=== PATIENT | male | born 1970 | race Two or more races ===

== ENCOUNTER 2018-05-05 10:20 | Emergency (ER) | payer MEDICAID ==
[~2018-05-05] VITALS: Ht 170.2 cm; Wt 131.0 kg
[~2018-05-05 10:20] MED LIST: CARV3.122 PO; FURO40TA4 PO; LISI10TA4 PO; POTA20TA19 PO; SPIR25TA5 PO
[2018-05-05 10:55] LABS: BASOPHILS # (AUTO) 0.1 X10'3 (0-0.2); BASOPHILS % (AUTO) 0.8 % (0-1); EOSINOPHILS # (AUTO) 0.3 X10'3 (0-0.9); EOSINOPHILS % (AUTO) 3.1 % (0-6); HEMATOCRIT 40.8 % (42.0-52.0); HEMOGLOBIN 13.1 g/dl (14.0-17.9); LYMPHOCYTES # (AUTO) 1.5 X10'3 (1.1-4.8); MEAN CORPUSCULAR HGB CONC 32.1 % (33.0-36.5); MEAN CORPUSCULAR VOLUME 84.1 FL (78-98); MEAN PLATELET VOLUME 7.7 FL (7.4-10.4); MONOCYTES # (AUTO) 0.8 X10'3 (0-0.9); MONOCYTES % (AUTO) 8.3 % (2-12); NEUTROPHILS # (AUTO) 6.9 X10'3 (1.8-7.7); NEUTROPHILS % (AUTO) 71.8 % (42-75); PLATELET COUNT 313 X10'3 (140-440); RED BLOOD COUNT 4.85 X10'6 (4.70-6.10); RED CELL DISTRIBUTION WIDTH 16.5 % (11.5-14.5); WHITE BLOOD COUNT 9.6 X10'3 (4.5-11.0)
[2018-05-05 11:07] LABS: INR 1.2 INR; PARTIAL THROMBOPLASTIN TIME 29 SECONDS (22-32); PROTHROMBIN TIME 11.8 SECONDS (9.0-12.0)
[2018-05-05 11:08] LABS: ALANINE AMINOTRANSFERASE 33 U/L (12-78); ALBUMIN 3.2 G/DL (3.4-5.0); ALBUMIN/GLOBULIN RATIO 0.8 (1.1-1.5); ALKALINE PHOSPHATASE 84 IU/L (46-116); ANION GAP 11 (8-16); ASPARTATE AMINO TRANSFERASE 21 U/L (10-37); BILIRUBIN,TOTAL 0.6 MG/DL (0.1-1.0); BLOOD UREA NITROGEN 24 MG/DL (7-18); BUN/CREATININE RATIO 15.8 (5.4-32.0); CALCIUM 7.8 MG/DL (8.5-10.1); CHLORIDE 108 MMOL/L (99-107); CREATININE 1.52 MG/DL (0.60-1.10); GLUCOSE 109 MG/DL (70-104); POTASSIUM 4.4 MMOL/L (3.5-5.1); SODIUM 144 MMOL/L (135-145); TOTAL CARBON DIOXIDE 25.4 MMOL/L (24-32); eGFR 49 ML/MIN
[2018-05-05] MEDS ORDERED: FURO-149 PO (11:33)
[2018-05-05] MEDS ORDERED: POTA20TA10 PO (11:33)
[2018-05-05 11:47] VITALS: BP 132/83
== END 2018-05-05 11:48 | disposition home or self-care (01) ==
LOC: ER 10:20
DX: I50.9 Heart failure, unspecified (principal); G89.29 Other chronic pain; Z87.11 Personal history of peptic ulcer disease
CPT/HCPCS: 36415; 71045; 80053; 83880; 84484; 85025; 85610; 85730; 93005; 99285

== ENCOUNTER 2018-05-12 11:50 | Emergency (ER) | payer MEDICAID ==
[~2018-05-12] VITALS: Ht 170.2 cm; Wt 143.1 kg
[~2018-05-12 11:50] MED LIST changes: +FURO-149 PO; +POTA20TA10 PO
[2018-05-12 12:49] LABS: BASOPHILS # (AUTO) 0.1 X10'3 (0-0.2); BASOPHILS % (AUTO) 0.4 % (0-1); EOSINOPHILS # (AUTO) 0.2 X10'3 (0-0.9); EOSINOPHILS % (AUTO) 1.7 % (0-6); HEMATOCRIT 41.2 % (42.0-52.0); HEMOGLOBIN 13.2 g/dl (14.0-17.9); LYMPHOCYTES # (AUTO) 1.9 X10'3 (1.1-4.8); LYMPHOCYTES % (AUTO) 14.1 % (21-51); MEAN CORPUSCULAR HEMOGLOBIN 26.9 PG (27.0-31.0); MEAN CORPUSCULAR HGB CONC 32.1 % (33.0-36.5); MEAN CORPUSCULAR VOLUME 83.9 FL (78-98); MEAN PLATELET VOLUME 7.9 FL (7.4-10.4); MONOCYTES # (AUTO) 1.1 X10'3 (0-0.9); MONOCYTES % (AUTO) 8.5 % (2-12); NEUTROPHILS % (AUTO) 75.3 % (42-75); PLATELET COUNT 379 X10'3 (140-440); RED BLOOD COUNT 4.91 X10'6 (4.70-6.10); RED CELL DISTRIBUTION WIDTH 16.5 % (11.5-14.5); WHITE BLOOD COUNT 13.3 X10'3 (4.5-11.0)
[2018-05-12 13:07] LABS: ALANINE AMINOTRANSFERASE 33 U/L (12-78); ALBUMIN 3.4 G/DL (3.4-5.0); ALBUMIN/GLOBULIN RATIO 0.9 (1.1-1.5); ALKALINE PHOSPHATASE 77 IU/L (46-116); ANION GAP 10 (8-16); ASPARTATE AMINO TRANSFERASE 22 U/L (10-37); BILIRUBIN,TOTAL 0.7 MG/DL (0.1-1.0); BLOOD UREA NITROGEN 22 MG/DL (7-18); BUN/CREATININE RATIO 16.3 (5.4-32.0); CALCIUM 8.7 MG/DL (8.5-10.1); CHLORIDE 105 MMOL/L (99-107); CREATININE 1.35 MG/DL (0.60-1.10); GLUCOSE 125 MG/DL (70-104); POTASSIUM 4.5 MMOL/L (3.5-5.1); SODIUM 143 MMOL/L (135-145); TOTAL PROTEIN 7.4 G/DL (6.4-8.2); eGFR 56 ML/MIN
[2018-05-12 13:17] LABS: INR 1.2 INR; PROTHROMBIN TIME 11.8 SECONDS (9.0-12.0)
[2018-05-12 13:18] LABS: PARTIAL THROMBOPLASTIN TIME 28 SECONDS (22-32)
[2018-05-12] MEDS ORDERED: FURO40TA4 PO (14:04)
[2018-05-12] MEDS ORDERED: POTA10TA19 PO (14:04)
[2018-05-12] MEDS ORDERED: potassium Cl 20 mEq SR tablet PO STA (14:21)
[2018-05-12] MEDS ORDERED: furosemide 20MG tablet PO ONE (14:25)
[2018-05-12 14:34] VITALS: BP 113/68
== END 2018-05-12 14:36 | disposition home or self-care (01) ==
LOC: ER 11:51
DX: R60.9 Edema, unspecified (principal); I51.7 Cardiomegaly; I50.9 Heart failure, unspecified; G89.29 Other chronic pain; F17.220 Nicotine dependence, chewing tobacco, uncomplicated; Z79.899 Other long term (current) drug therapy
CPT/HCPCS: 36415; 71045; 80053; 84484; 85025; 85610; 85730; 93005; 99285

== ENCOUNTER 2018-06-17 09:47 | Emergency (ER) | payer MEDICAID ==
[~2018-06-17] VITALS: Ht 170.2 cm; Wt 140.9 kg
[2018-06-17 10:17] LABS: BASOPHILS % (AUTO) 0.4 % (0-1); EOSINOPHILS # (AUTO) 0.2 X10'3 (0-0.9); HEMATOCRIT 40.6 % (42.0-52.0); HEMOGLOBIN 12.9 g/dl (14.0-17.9); LYMPHOCYTES # (AUTO) 1.4 X10'3 (1.1-4.8); LYMPHOCYTES % (AUTO) 13.5 % (21-51); MEAN CORPUSCULAR HEMOGLOBIN 25.6 PG (27.0-31.0); MEAN CORPUSCULAR HGB CONC 31.8 % (33.0-36.5); MEAN CORPUSCULAR VOLUME 80.5 FL (78-98); MEAN PLATELET VOLUME 7.6 FL (7.4-10.4); MONOCYTES # (AUTO) 0.8 X10'3 (0-0.9); MONOCYTES % (AUTO) 8.1 % (2-12); NEUTROPHILS # (AUTO) 7.6 X10'3 (1.8-7.7); PLATELET COUNT 300 X10'3 (140-440); RED BLOOD COUNT 5.05 X10'6 (4.70-6.10); RED CELL DISTRIBUTION WIDTH 16.4 % (11.5-14.5)
[2018-06-17] MEDS ORDERED: furosemide 10 MG/1 ML 10ml inj IV ONE (10:20)
[2018-06-17 10:32] LABS: INR 1.1 INR; PARTIAL THROMBOPLASTIN TIME 23 SECONDS (22-32); PROTHROMBIN TIME 11.5 SECONDS (9.0-12.0)
[2018-06-17 10:37] LABS: ALANINE AMINOTRANSFERASE 25 U/L (12-78); ALBUMIN 3.5 G/DL (3.4-5.0); ALBUMIN/GLOBULIN RATIO 0.9 (1.1-1.5); ALKALINE PHOSPHATASE 75 IU/L (46-116); ANION GAP 11 (8-16); ASPARTATE AMINO TRANSFERASE 18 U/L (10-37); BILIRUBIN,TOTAL 0.5 MG/DL (0.1-1.0); BLOOD UREA NITROGEN 24 MG/DL (7-18); CALCIUM 8.6 MG/DL (8.5-10.1); CHLORIDE 105 MMOL/L (99-107); CREATININE 1.09 MG/DL (0.60-1.10); GLUCOSE 119 MG/DL (70-104); POTASSIUM 3.9 MMOL/L (3.5-5.1); SODIUM 143 MMOL/L (135-145); TOTAL PROTEIN 7.5 G/DL (6.4-8.2); eGFR 72 ML/MIN
[2018-06-17 10:44] LABS: D-DIMER 0.52 MG/L FEU (0-0.50)
[2018-06-17 11:42] VITALS: BP 109/79
== END 2018-06-17 11:43 | disposition home or self-care (01) ==
LOC: ER 09:47
DX: I50.9 Heart failure, unspecified (principal); G89.29 Other chronic pain; F17.220 Nicotine dependence, chewing tobacco, uncomplicated; Z79.899 Other long term (current) drug therapy
CPT/HCPCS: 36415; 71045; 80053; 83880; 84484; 85025; 85379; 85610; 85730; 93005; 96374; 99284; J1940

== ENCOUNTER 2023-02-24 22:05 | Inpatient (IN) | payer MEDICAID ==
[~2023-02-24] VITALS: Ht 167.6 cm; Wt 150.1 kg
[~2023-02-24 22:05] MED LIST changes: +LISI10TA27 PO; -LISI10TA4 PO; +POTA-197 PO; +POTA-207 PO; -POTA20TA10 PO; -POTA20TA19 PO
[2023-02-24 23:24] LABS: BASOPHILS % (AUTO) 0.4 % (0-1); EOSINOPHILS % (AUTO) 0 % (0-6); HEMATOCRIT 40.1 % (42.0-52.0); HEMOGLOBIN 12.7 g/dl (14.0-17.9); LYMPHOCYTES # (AUTO) 0.8 X10'3 (1.1-4.8); LYMPHOCYTES % (AUTO) 6.8 % (21-51); MEAN CORPUSCULAR HEMOGLOBIN 27.4 PG (27.0-31.0); MEAN CORPUSCULAR HGB CONC 31.7 g/dL (33.0-36.5); MEAN CORPUSCULAR VOLUME 86.5 FL (78-98); MONOCYTES # (AUTO) 0.9 X10'3 (0-0.9); NEUTROPHILS # (AUTO) 9.7 X10'3 (1.8-7.7); NEUTROPHILS % (AUTO) 84.8 % (42-75); PLATELET COUNT 244 X10'3 (140-440); RED BLOOD COUNT 4.64 X10'6 (4.70-6.10); RED CELL DISTRIBUTION WIDTH 16.5 % (11.5-14.5); WHITE BLOOD COUNT 11.5 X10'3 (4.5-11.0)
[2023-02-24 23:40] LABS: ALANINE AMINOTRANSFERASE 32 U/L (12-78); ALBUMIN 2.8 G/DL (3.4-5.0); ALBUMIN/GLOBULIN RATIO 0.8 (1.1-1.5); ALKALINE PHOSPHATASE 65 IU/L (46-116); ANION GAP 6 (8-16); ASPARTATE AMINO TRANSFERASE 30 U/L (10-37); BILIRUBIN,TOTAL 0.8 MG/DL (0.1-1.0); BLOOD UREA NITROGEN 17 MG/DL (7-18); BUN/CREATININE RATIO 11.3 (10.0-20.0); CHLORIDE 101 MMOL/L (99-107); GLUCOSE 95 MG/DL (70-104); POTASSIUM 4.1 MMOL/L (3.5-5.1); SODIUM 139 MMOL/L (135-145); TOTAL PROTEIN 6.2 G/DL (6.4-8.2); eCRCL 51 ML/MIN; eGFR 49 ML/MIN
[2023-02-24 23:49] LABS: PRO BRAIN NATRIURETIC PEPTIDE 9098 PG/ML (0-125)
[2023-02-24] MEDS ORDERED: furosemide 10 MG/1 ML 10ml inj IV ONE (23:50)
[2023-02-25] VITALS (15 sets, daily range): BP systolic 53–160; BP diastolic 39–123; PULSE 107–136; RESP 16–38; O2SAT 85–99
[2023-02-25 01:02] LABS: INR 1.2 INR; PROTHROMBIN TIME 12.8 SECONDS (9.0-12.0)
[2023-02-25] MEDS ORDERED: ringers solution, lactated 500ml IV solution IV ONE (01:55)
[2023-02-25] MEDS ORDERED: MEROPENEM IV ONE (02:00)
[2023-02-25] MEDS ORDERED: NORMAL SALINE IV ONE (02:00)
--- NOTE | 2023-02-25 02:34 | NUR ---
pt has voided 2 times but has spilt his urinal.
--- NOTE | 2023-02-25 02:45 | NUR ---
PATIENT MOVED TO BED #5 FROM #10 DUE TO HYPOTENSION AND NEEDING A CENTRAL LINE PLACED, VÍCTOR LUGO TO LUC
[2023-02-25] MEDS ORDERED: DOBUTamine-DoBUTrex 500mg/D5W 250 ML IV SCH ×2 (03:10→03:20)
--- NOTE | 2023-02-25 03:11 | NUR ---
PER DR ARROYO WE ARE TO START DOBUTAMINE ON PIV UNTIL DR. ARROYO CAN GET CENTRAL LINE INSERTED, CONSENT SIGNED AT BEDSIDE AWAITING ED
[2023-02-25] MEDS ORDERED: vancomycin/NS 1 GM ADD-VANTAGE 250 ML IV ONE (03:30)
[2023-02-25] MEDS ORDERED: furosemide 10 MG/1 ML 10ml inj IV ONE (03:30)
[2023-02-25] MEDS ORDERED: NORepinephrine 8mg/ 250ml NS 250 ML IV ONE (04:09)
[2023-02-25] MEDS: NORepinephrine 8mg/ 250ml NS 250 ML IV SCH ×5 (04:15→10:28)
--- NOTE | 2023-02-25 04:30 | NUR ---
CXR VIEWED BY ED MD AND VERBALIZED IT CAN BE USED FOR MEDICATION
[2023-02-25] MEDS ORDERED: vancomycin/NS 1 GM ADD-VANTAGE 250 ML X 1 DOSE IV ONE (05:15)
[2023-02-25] MEDS ORDERED: LIDOcaine 2% 10ml TOPICAL JELLY (Urojet) TP ONE (06:40)
[2023-02-25] MEDS ORDERED: LidoCAINE 2% Topical Jelly 11mL syringe TOP ONE (06:45)
[2023-02-25] MEDS ORDERED: morphine 4 MG/ML inj SYRINge IV ONE (07:25)
[2023-02-25] MEDS ORDERED: sod chloride 0.9% 10ml flush syringe IV ONE (08:00)
[2023-02-25] MEDS ORDERED: rocuronium 10mg/ml inj IV ONE (08:00)
[2023-02-25] MEDS ORDERED: etomidate 2mg/ml inj. ONE (08:00)
[2023-02-25] MEDS ORDERED: normal saline 1000ML IV soln IVB ONE (08:45)
[2023-02-25] MEDS ORDERED: acetaminophen 325mg tablet PO ONE (08:50)
[2023-02-25] MEDS: ampicillin/sulbac 3gm/NS 100ml 100 ML IV SCH ×3 (09:40→20:15)
[2023-02-25 09:42] LABS: ABG BASE EXCESS -2.9 mmol/L (-2.0-2.0); ABG HCO3 19.6 mmol/L (22.0-26.0); ABG OXYGEN SATURATION 96.5 % (94-97); ABG PCO2 (T) 30.9 mmHg (35.0-48.0); ABG PH (T) 7.428 (7.340-7.440); ABG PO2 (T) 91.8 mmHg (75.0-100.0); ALLEN'S TEST POSITIVE; FCOHb 0.5 % (0.0-3.9); FHHb 3.5 % (0.0-5.0); FMetHb 0.1 % (0.0-1.5); FO2Hb 95.9 % (94-97); MODE ROOM AIR; PATIENT TEMPERATURE 39.2; TOTAL HEMOGLOBIN 13.4 G/dl (14.0-17.9)
[2023-02-25] MEDS ORDERED: acetaminophen 325mg tablet PO PRN ×2 (09:50)
[2023-02-25] MEDS ORDERED: ondansetron/PF 4mg/2ml inj IV PRN (09:50)
[2023-02-25] MEDS ORDERED: magnesium hydroxide 30ml (MOM) UD suspension PO PRN (09:50)
[2023-02-25] MEDS: morphine 2 MG/ML inj. syringe IV PRN ×2 (10:20→16:07)
[2023-02-25] MEDS: HYDROcodone/acetaminophen 10/325mg tab PO PRN (10:20)
--- NOTE | 2023-02-25 11:20 | NUR ---
Report received from Guadalupe AMADOR
[2023-02-25] MEDS ORDERED: vasopressin inj. 40 UNIT in dextrose 5%-water 50ml 38 ML IV SCH (14:25)
[2023-02-25 14:26] LABS: ABG BASE EXCESS -18.9 mmol/L (-2.0-2.0); ABG HCO3 9.2 mmol/L (22.0-26.0); ABG OXYGEN SATURATION 96.8 % (94-97); ABG PCO2 (T) 31.6 mmHg (35.0-48.0); ABG PH (T) 7.093 (7.340-7.440); ABG PO2 (T) 115.2 mmHg (75.0-100.0); FCOHb 0.5 % (0.0-3.9); FHHb 3.2 % (0.0-5.0); FLOW 4 L/min; FMetHb 0.3 % (0.0-1.5); MODE NASAL CANNULA; PATIENT TEMPERATURE 38.4; TOTAL HEMOGLOBIN 14.2 G/dl (14.0-17.9)
[2023-02-25] MEDS ORDERED: sodium bicarbonate (8.4%) 1 mEq/ml syringe IV ONE (14:30)
[2023-02-25] MEDS ORDERED: albumin (human) 25% 100ml IV 400 ML IV ONE (14:30)
[2023-02-25] MEDS ORDERED: SODIUM BICARB 150mEq/D5W 1L 1,000 ML IV SCH (14:30)
[2023-02-25] MEDS ORDERED: dextrose 50%-water 50ml dispensing syringe IV ONE (14:34)
[2023-02-25] MEDS ORDERED: LISI10TA27 PO (15:00)
[2023-02-25] MEDS ORDERED: ALLO300T8 PO (15:00)
[2023-02-25] MEDS ORDERED: ALBU18HF2 INH (15:00)
[2023-02-25 15:17] LABS: BASOPHILS % (AUTO) 0.2 % (0-1); EOSINOPHILS % (AUTO) 0.1 % (0-6); LYMPHOCYTES # (AUTO) 1.6 X10'3 (1.1-4.8); LYMPHOCYTES % (AUTO) 13.3 % (21-51); MEAN PLATELET VOLUME 8.3 FL (7.4-10.4); MONOCYTES # (AUTO) 0.3 X10'3 (0-0.9); MONOCYTES % (AUTO) 2.7 % (2-12); NEUTROPHILS % (AUTO) 83.7 % (42-75); PLATELET COUNT 228 X10'3 (140-440)
[2023-02-25] MEDS ORDERED: levoFLOXACIN-Levaquin 750MG/D5 150 ML IV STA (15:18)
[2023-02-25] MEDS: SODIUM BICARB IV SCH (15:27)
[2023-02-25] MEDS: [UNRECOGNIZED DRUG - OTHER] IV SCH (15:27)
[2023-02-25] MEDS: vasopressin inj. 40 UNIT in normal saline 50ml IV soln 38 ML IV SCH ×2 (15:28→23:34)
[2023-02-25 15:36] LABS: HEMATOCRIT 41.7 % (42.0-52.0); MEAN CORPUSCULAR HGB CONC 31.1 g/dL (33.0-36.5); RED BLOOD COUNT 4.64 X10'6 (4.70-6.10); RED CELL DISTRIBUTION WIDTH 16.9 % (11.5-14.5)
[2023-02-25 15:46] LABS: ALBUMIN 2.3 G/DL (3.4-5.0); ALBUMIN/GLOBULIN RATIO 0.8 (1.1-1.5); ALKALINE PHOSPHATASE 41 IU/L (46-116); ANION GAP 26 (8-16); ASPARTATE AMINO TRANSFERASE 39 U/L (10-37); BILIRUBIN,TOTAL 0.8 MG/DL (0.1-1.0); BLOOD UREA NITROGEN 28 MG/DL (7-18); BUN/CREATININE RATIO 9.1 (10.0-20.0); CALCIUM 6.9 MG/DL (8.5-10.1); CHLORIDE 100 MMOL/L (99-107); CREATININE 3.07 MG/DL (0.60-1.10); GLUCOSE 56 MG/DL (70-104); POTASSIUM 5.3 MMOL/L (3.5-5.1); SODIUM 136 MMOL/L (135-145); TOTAL PROTEIN 5.2 G/DL (6.4-8.2); eCRCL 25 ML/MIN; eGFR 21 ML/MIN
[2023-02-25 15:52] LABS: TOTAL CARBON DIOXIDE 10.3 MMOL/L (24-32)
[2023-02-25] MEDS: albumin (Human) 5% 250ml 250 ML IV SCH ×3 (16:01→22:26)
[2023-02-25] MEDS: heparin, porcine 5000 units/ml vial SQ SCH ×2 (16:07→23:45)
[2023-02-25 16:08] LABS: PRO BRAIN NATRIURETIC PEPTIDE > 30000 PG/ML (0-125)
[2023-02-25] MEDS ORDERED: VANCOmycin 2,000MG in NS 500ml IV soln IV ONE (16:15)
[2023-02-25 16:17] LABS: ALANINE AMINOTRANSFERASE 24 U/L (12-78)
[2023-02-25 16:42] LABS: URINE AMPHETAMINE SCREEN NEGATIVE (Neg); URINE BARBITUATE SCREEN NEGATIVE (Neg); URINE BENZODIAZEPINES SCREEN NEGATIVE (Neg); URINE CANNABINOID SCREEN NEGATIVE (Neg); URINE COCAINE SCREEN NEGATIVE (Neg); URINE METHADONE SCREEN NEGATIVE (Neg); URINE OPIATE SCREEN POSITIVE (Neg); URINE PHENCYCLIDINE SCREEN NEGATIVE (Neg)
[2023-02-25] MEDS: NORepinephrine inj. 32 MG in normal saline 250ml IV soln 218 ML IV SCH ×2 (16:42→21:04)
[2023-02-25] MEDS ORDERED: fludrocortisone acetate 0.1mg tablet PO SCH (16:50)
[2023-02-25] MEDS ORDERED: midazolam 1 mg/ML 2ml injection ONE (16:59)
[2023-02-25] MEDS: fludrocortisone acetate 0.1mg tablet PO SCH (17:22)
[2023-02-25] MEDS: hydrocortisone sod succ/PF 100mg/2ml inj. IV SCH ×2 (17:52→23:45)
[2023-02-25 17:58] LABS: ABG BASE EXCESS -14.9 mmol/L (-2.0-2.0); ABG HCO3 15.1 mmol/L (22.0-26.0); ABG OXYGEN SATURATION 93.5 % (94-97); ABG PCO2 (T) 56.8 mmHg (35.0-48.0); ABG PH (T) 7.055 (7.340-7.440); ABG PO2 (T) 95.2 mmHg (75.0-100.0); FCOHb 0.5 % (0.0-3.9); FHHb 6.4 % (0.0-5.0); FMetHb 0.3 % (0.0-1.5); FO2Hb 92.8 % (94-97); MODE PRVC; PATIENT TEMPERATURE 38.9; PEEP 5 cm H2O; RESPIRATORY RATE 16 b/min; TIDAL VOLUME 500 mL
[2023-02-25 19:09] LABS: BASOPHILS % (AUTO) 0.2 % (0-1); EOSINOPHILS % (AUTO) 0.1 % (0-6); HEMATOCRIT 41.5 % (42.0-52.0); LYMPHOCYTES % (AUTO) 7.5 % (21-51); MEAN CORPUSCULAR HEMOGLOBIN 27.7 PG (27.0-31.0); MEAN CORPUSCULAR HGB CONC 31.4 g/dL (33.0-36.5); MEAN CORPUSCULAR VOLUME 88.2 FL (78-98); MONOCYTES # (AUTO) 0.5 X10'3 (0-0.9); NEUTROPHILS # (AUTO) 11.9 X10'3 (1.8-7.7); NEUTROPHILS % (AUTO) 88.2 % (42-75); PLATELET COUNT 200 X10'3 (140-440); RED CELL DISTRIBUTION WIDTH 17.1 % (11.5-14.5); WHITE BLOOD COUNT 13.5 X10'3 (4.5-11.0)
[2023-02-25] MEDS: midazolam 100mg in NS 100ml 100 ML IV PRN (19:10)
[2023-02-25] MEDS: FENTANYL-0.9 % NACL/PF 100 ML IV PRN (19:11)
[2023-02-25 19:27] LABS: ALBUMIN 2.6 G/DL (3.4-5.0); ANION GAP 21 (8-16); BLOOD UREA NITROGEN 31 MG/DL (7-18); BUN/CREATININE RATIO 9.9 (10.0-20.0); CALCIUM 6.7 MG/DL (8.5-10.1); CHLORIDE 101 MMOL/L (99-107); CREATININE 3.14 MG/DL (0.60-1.10); GLUCOSE 83 MG/DL (70-104); MAGNESIUM 1.5 MG/DL (1.5-2.4); POTASSIUM 4.4 MMOL/L (3.5-5.1); SODIUM 141 MMOL/L (135-145); TOTAL CARBON DIOXIDE 19.2 MMOL/L (24-32); eCRCL 25 ML/MIN; eGFR 21 ML/MIN
--- NOTE | 2023-02-25 19:31 | NUR ---
Notified Dr. Jung of pt's condition. All drips, vent settings and vitals. He'd like to stay the course for now with no changes. He did not want to increase PEEP for fear of dropping the BP. He said it's OK to start Phenylephrine if pt needs but it should be last resort (already maxed on Levophed and Vasopressin).
[2023-02-25 20:41] LABS: ABG BASE EXCESS -12.8 mmol/L (-2.0-2.0); ABG HCO3 15.6 mmol/L (22.0-26.0); ABG OXYGEN SATURATION 99.4 % (94-97); ABG PCO2 (T) 48.1 mmHg (35.0-48.0); ABG PH (T) 7.137 (7.340-7.440); FCOHb 0.4 % (0.0-3.9); FHHb 0.6 % (0.0-5.0); MODE VENT - prvc; PATIENT TEMPERATURE 38.5; PEEP 5 cm H2O; RESPIRATORY RATE 22 b/min; TIDAL VOLUME 500 mL; TOTAL HEMOGLOBIN 13.9 G/dl (14.0-17.9)
[2023-02-25 20:44] LABS: OXYGEN SATURATION (MIXED VEN) 76.4 % (60-80); PO2 MIXED VENOUS (TEMP COR) 49.9 mmHg (35-46)
[2023-02-25] MEDS: PHENYLephrine 10mg/ml inj. 50 MG in normal saline 250ml IV soln 245 ML IV PRN (21:16)
--- NOTE | 2023-02-25 21:38 | NUR ---
notified Dr. Jung pt's BP is currently 70/40 MAP 50 on the cuff and 60/40 on the [place]. Attempted Niall drip as he previously wanted, this just decreased the pt's BP further and his CI (on flotrack) dropped from 2.1 to 1.5 once it was started. MD would like to give a bolus of LR 500ml gently and if needed decrease dobutamine after that since his BP is so low.
[2023-02-25] MEDS ORDERED: ringers solution, lacted 1,000 ML IV ONE (21:40)
--- NOTE | 2023-02-25 22:16 | NUR ---
Dr. Jung rounded on pt. He would like Dobutamine weaned to off and just use Norepi/Vasopressin/Niall drips. Despite the fact his EF is 5-10% he thinks the afterload reduction from Dobutamine is just to much for him. He is aware his sats have decreased after receiving his bolus, said there is really nothing to do for this. His sat probe hasn't been the most reliable so we will check an abg in a bit to see if it's even really de-saturation given his PO2 was so high on the last check.
--- NOTE | 2023-02-25 22:32 | NUR ---
Scanned bladder only 9 ml. Flushed catheter prior with 20ml and only got 20ml back.
[2023-02-25 23:06] LABS: CREATINE KINASE 207 U/L (39-308); URIC ACID 8.1 MG/DL (3.5-7.2)
--- NOTE | 2023-02-25 23:10 | NUR ---
Notified Dr. Jnug of increasing lactate. Nothing to really do, he wants me to keep going up with Niall azra.
[2023-02-26] VITALS (38 sets, daily range): BP systolic 76–121; BP diastolic 43–81; PULSE 104–121; RESP 20–31; O2SAT 74–96
[2023-02-26] MEDS: NORepinephrine inj. 32 MG in normal saline 250ml IV soln 218 ML IV SCH ×7 (00:52→23:29)
[2023-02-26] MEDS: PHENYLephrine 10mg/ml inj. 50 MG in normal saline 250ml IV soln 245 ML IV PRN (00:52)
[2023-02-26 00:56] LABS: ANION GAP 23 (8-16); BLOOD UREA NITROGEN 33 MG/DL (7-18); BUN/CREATININE RATIO 9.1 (10.0-20.0); CALCIUM 6.4 MG/DL (8.5-10.1); CHLORIDE 100 MMOL/L (99-107); CREATININE 3.64 MG/DL (0.60-1.10); GLUCOSE 77 MG/DL (70-104); MAGNESIUM 1.5 MG/DL (1.5-2.4); PHOSPHORUS 8.6 MG/DL (2.3-4.5); SODIUM 137 MMOL/L (135-145); eCRCL 21 ML/MIN; eGFR 18 ML/MIN
[2023-02-26 01:01] LABS: TOTAL CARBON DIOXIDE 13.7 MMOL/L (24-32)
[2023-02-26 01:25] LABS: ABG BASE EXCESS -16.7 mmol/L (-2.0-2.0); ABG OXYGEN SATURATION 98.9 % (94-97); ABG PCO2 (T) 40.6 mmHg (35.0-48.0); ABG PH (T) 7.097 (7.340-7.440); ABG PO2 (T) 155.3 mmHg (75.0-100.0); FCOHb 0.2 % (0.0-3.9); FHHb 1.1 % (0.0-5.0); FO2Hb 98.7 % (94-97); MODE VENT - prvc; PATIENT TEMPERATURE 38.3; PEEP 5 cm H2O; RESPIRATORY RATE 22 b/min; TIDAL VOLUME 22 mL; TOTAL HEMOGLOBIN 14.5 G/dl (14.0-17.9)
[2023-02-26] MEDS ORDERED: sodium bicarbonate (8.4%) 1 mEq/ml syringe IV ONE (01:35)
[2023-02-26] MEDS: albumin (Human) 5% 250ml 250 ML IV SCH ×8 (01:46→21:25)
[2023-02-26] MEDS: ampicillin/sulbac 3gm/NS 100ml 100 ML IV SCH ×4 (01:46→19:53)
[2023-02-26] MEDS: [UNRECOGNIZED DRUG - OTHER] IV SCH ×4 (01:47→17:25)
[2023-02-26] MEDS: SODIUM BICARB IV SCH ×4 (01:47→17:25)
--- NOTE | 2023-02-26 01:53 | NUR ---
Dr. Jung was notified of critical ABG. See orders. Also of note, the O2 Sat in the room is hardly ever correct despite having a good pleth. His O2 sat on ABG is consistently higher. So FiO2 changes will be made based off ABGs for now.
[2023-02-26] MEDS ORDERED: dextrose 50%-water 50ml dispensing syringe IV ONE (02:10)
[2023-02-26] MEDS: PHENYLephrine 10mg/ml inj. 100 MG in normal saline 250ml IV soln 240 ML IV SCH ×2 (02:12→06:21)
[2023-02-26 02:20] LABS: TOTAL CELLS COUNTED 100
[2023-02-26 02:29] LABS: ANISOCYTOSIS 1+; ELLIPTOCYTES FEW; PLATELET ESTIMATE NORMAL; POIKILOCYTOSIS FEW
[2023-02-26 02:30] LABS: TOXIC VACUOLATION 1+
[2023-02-26 03:08] LABS: HEMATOCRIT 43.6 % (42.0-52.0); HEMOGLOBIN 13.5 g/dl (14.0-17.9); MEAN CORPUSCULAR HEMOGLOBIN 27.7 PG (27.0-31.0); MEAN CORPUSCULAR VOLUME 89.6 FL (78-98); RED BLOOD COUNT 4.87 X10'6 (4.70-6.10); WHITE BLOOD COUNT 17.7 X10'3 (4.5-11.0)
[2023-02-26 03:09] LABS: BASOPHILS % (AUTO) 0.2 % (0-1); EOSINOPHILS # (AUTO) 0.1 X10'3 (0-0.9); EOSINOPHILS % (AUTO) 0.4 % (0-6); LYMPHOCYTES # (AUTO) 1.4 X10'3 (1.1-4.8); LYMPHOCYTES % (AUTO) 7.7 % (21-51); MEAN CORPUSCULAR HGB CONC 30.9 g/dL (33.0-36.5); MEAN PLATELET VOLUME 8.3 FL (7.4-10.4); MONOCYTES # (AUTO) 0.8 X10'3 (0-0.9); MONOCYTES % (AUTO) 4.4 % (2-12); NEUTROPHILS # (AUTO) 15.4 X10'3 (1.8-7.7); NEUTROPHILS % (AUTO) 87.3 % (42-75); PLATELET COUNT 189 X10'3 (140-440); RED CELL DISTRIBUTION WIDTH 17.7 % (11.5-14.5)
[2023-02-26] MEDS ORDERED: vancomycin/NS 1 GM ADD-VANTAGE 250 ML IV SCH (05:00)
--- NOTE | 2023-02-26 06:16 | NUR ---
Patient in room CICU 2013. I have received report from Quinton AMADOR and had the opportunity to ask questions and assume patient care.
[2023-02-26] MEDS: FENTANYL-0.9 % NACL/PF 100 ML IV PRN ×2 (06:39→23:28)
[2023-02-26] MEDS: hydrocortisone sod succ/PF 100mg/2ml inj. IV SCH ×4 (07:10→23:28)
[2023-02-26] MEDS: heparin, porcine 5000 units/ml vial SQ SCH (07:10)
[2023-02-26] MEDS: fludrocortisone acetate 0.1mg tablet PO SCH ×2 (07:11→15:03)
[2023-02-26] MEDS ORDERED: pantoprazole 40mg Tablet.DR PO SCH (07:30)
[2023-02-26] MEDS: lansoprazole 15mg solutab OGT SCH (07:33)
[2023-02-26 07:44] LABS: ABG BASE EXCESS -14.9 mmol/L (-2.0-2.0); ABG HCO3 12.9 mmol/L (22.0-26.0); ABG OXYGEN SATURATION 97.7 % (94-97); ABG PCO2 (T) 39.7 mmHg (35.0-48.0); ABG PH (T) 7.139 (7.340-7.440); ABG PO2 (T) 118.3 mmHg (75.0-100.0); FCOHb 0.3 % (0.0-3.9); FHHb 2.3 % (0.0-5.0); FMetHb 0.4 % (0.0-1.5); MODE VENT - AC/PRVC; PATIENT TEMPERATURE 38.5; PEEP 5 cm H2O; RESPIRATORY RATE 22 b/min; TIDAL VOLUME 500 mL; TOTAL HEMOGLOBIN 14.3 G/dl (14.0-17.9)
[2023-02-26] MEDS ORDERED: enoxaparin 40mg/0.4ml syringe SUBCUT SCH (08:00)
[2023-02-26] MEDS ORDERED: levoFLOXACIN-Levaquin 750MG/D5 150 ML IV SCH (08:00)
[2023-02-26 08:09] LABS: INR 2.5 INR; PROTHROMBIN TIME 25.7 SECONDS (9.0-12.0)
[2023-02-26 08:26] LABS: ANION GAP 23 (8-16); BLOOD UREA NITROGEN 37 MG/DL (7-18); BUN/CREATININE RATIO 9.2 (10.0-20.0); CHLORIDE 100 MMOL/L (99-107); CREATININE 4.03 MG/DL (0.60-1.10); GLUCOSE 114 MG/DL (70-104); MAGNESIUM 1.5 MG/DL (1.5-2.4); PHOSPHORUS 8.9 MG/DL (2.3-4.5); POTASSIUM 5.2 MMOL/L (3.5-5.1); SODIUM 138 MMOL/L (135-145); eCRCL 19 ML/MIN; eGFR 16 ML/MIN
[2023-02-26 08:27] LABS: ALANINE AMINOTRANSFERASE 645 U/L (12-78); ALKALINE PHOSPHATASE 35 IU/L (46-116); TOTAL PROTEIN 5.9 G/DL (6.4-8.2)
[2023-02-26 08:31] LABS: ASPARTATE AMINO TRANSFERASE 1578 U/L (10-37)
--- NOTE | 2023-02-26 08:46 | NUR ---
Called Dr. Panchal about critical Lactic Acid of 12.4, co2 of 15.0, and Calcium of 6.0. MD also aware of elevated Creatine, oliguria/anuria, and elevated liver enzymes. Orders for 1g Calcium Gluconate and MD will work on nephrology consult.
[2023-02-26] MEDS ORDERED: CALCIUM GLUC 1gm/50ml NACL,iso 100 ML IV ONE (08:50)
--- NOTE | 2023-02-26 09:30 | NUR ---
Dr. Panchal at bedside, patient febrile 38.6,cooling measures provided,fan in the room,Md ordered to dc tylenol due to elevated LFT's.
[2023-02-26] MEDS ORDERED: atropine 0.1mg/ml 10ml syringe ONE (10:30)
[2023-02-26] MEDS ORDERED: sodium bicarbonate (8.4%) 1 mEq/ml syringe ONE (10:30)
--- NOTE | 2023-02-26 10:40 | NUR ---
Dave/Malnutrition Consults: Pt intubated admit DX septic shock, hypotension, BLE cellulitis, CHF exacerbation, acute renal failure, and peptic ulcer disease per EMR. Pt currently NPO w/ OG in place MAP 69-76 this AM on pressors per EMR; TF recs below in case prolonged intubation. Pt reports unsure of wt loss w/ decreased intake prior to intubation per RN Malnutrition Screen. Pt w/ normal strength prior to intubation and current scaled wt consistent w/ prior wt hx in 2018 but no recent wt hx in EMR. At this time pt lacks minimum malnutrition criteria. Dave 11 w/ no wounds per physical assessment in EMR. LBM 02/24 per EMR. Will monitor for further nutrition intervention needs this admit. Rec: 1. Continuous TF if prolonged intubation; IF TF Vital HP at 70ml/hr goal would provide 1680ml volume/day, 1680 kcals, 1404ml water, and 147g protein. 2. IF TF; additional water flush per security agent 3. IF TF; PALB Q / 4. routine bowel care 5. daily scaled wt 6. upon extubation; advance diet as medically indicated to heart healthy Addendum: 02/26/23 at [address] Amended: Links added.
--- NOTE | 2023-02-26 13:18 | NUR ---
Dr. Panchal at bedside,ordered dobutamine restarted at 3mcg, non titratable.
[2023-02-26 13:57] LABS: ALBUMIN 2.9 G/DL (3.4-5.0); ANION GAP 19 (8-16); BLOOD UREA NITROGEN 41 MG/DL (7-18); BUN/CREATININE RATIO 9.6 (10.0-20.0); CALCIUM 6.1 MG/DL (8.5-10.1); CHLORIDE 99 MMOL/L (99-107); CREATININE 4.26 MG/DL (0.60-1.10); GLUCOSE 118 MG/DL (70-104); MAGNESIUM 1.4 MG/DL (1.5-2.4); PHOSPHORUS 7.8 MG/DL (2.3-4.5); POTASSIUM 5.4 MMOL/L (3.5-5.1); SODIUM 137 MMOL/L (135-145); TOTAL CARBON DIOXIDE 19.5 MMOL/L (24-32); eCRCL 18 ML/MIN; eGFR 15 ML/MIN
[2023-02-26 15:18] LABS: ABG BASE EXCESS -9.3 mmol/L (-2.0-2.0); ABG OXYGEN SATURATION 97.7 % (94-97); ABG PCO2 (T) 37.2 mmHg (35.0-48.0); ABG PH (T) 7.264 (7.340-7.440); ABG PO2 (T) 118.5 mmHg (75.0-100.0); FHHb 2.3 % (0.0-5.0); FMetHb 0.3 % (0.0-1.5); FO2Hb 97.4 % (94-97); MODE VENT - AC/PRVC; PATIENT TEMPERATURE 39.6; PEEP 5 cm H2O; RESPIRATORY RATE 20 b/min; TIDAL VOLUME 600 mL; TOTAL HEMOGLOBIN 13.3 G/dl (14.0-17.9)
--- NOTE | 2023-02-26 16:33 | NUR ---
vanco trough 44.4.pharmacy to dose.
--- NOTE | 2023-02-26 18:08 | NUR ---
Problems reprioritized. Patient report given, questions answered & plan of care reviewed with Quinton AMADOR.
[2023-02-26] MEDS: midazolam 100mg in NS 100ml 100 ML IV PRN (18:36)
[2023-02-26 21:13] LABS: ABG BASE EXCESS -8.1 mmol/L (-2.0-2.0); ABG HCO3 16.5 mmol/L (22.0-26.0); ABG OXYGEN SATURATION 95.1 % (94-97); ABG PCO2 (T) 33.7 mmHg (35.0-48.0); ABG PH (T) 7.315 (7.340-7.440); ABG PO2 (T) 87.1 mmHg (75.0-100.0); FHHb 4.9 % (0.0-5.0); FMetHb 0.3 % (0.0-1.5); FO2Hb 94.8 % (94-97); PATIENT TEMPERATURE 38.7; PEEP 5 cm H2O; RESPIRATORY RATE 22 b/min; TIDAL VOLUME 600 mL; TOTAL HEMOGLOBIN 13.1 G/dl (14.0-17.9)
[2023-02-26 21:24] LABS: ALBUMIN 2.9 G/DL (3.4-5.0); ALBUMIN/GLOBULIN RATIO 1.2 (1.1-1.5); ALKALINE PHOSPHATASE 38 IU/L (46-116); ANION GAP 21 (8-16); BILIRUBIN,TOTAL 2.5 MG/DL (0.1-1.0); BLOOD UREA NITROGEN 44 MG/DL (7-18); BUN/CREATININE RATIO 9.6 (10.0-20.0); CHLORIDE 99 MMOL/L (99-107); GLUCOSE 108 MG/DL (70-104); MAGNESIUM 1.4 MG/DL (1.5-2.4); PHOSPHORUS 6.9 MG/DL (2.3-4.5); POTASSIUM 5.4 MMOL/L (3.5-5.1); SODIUM 138 MMOL/L (135-145); TOTAL CARBON DIOXIDE 18.5 MMOL/L (24-32); TOTAL PROTEIN 5.4 G/DL (6.4-8.2); eCRCL 17 ML/MIN; eGFR 13 ML/MIN
[2023-02-26] MEDS: vasopressin inj. 40 UNIT in normal saline 50ml IV soln 38 ML IV SCH (21:40)
[2023-02-26] MEDS ORDERED: magnesium 2GM in 50ml NS 50 ML IV ONE (22:15)
[2023-02-26] MEDS ORDERED: CALCIUM GLUC 1gm/50ml NACL,iso 50 ML IV ONE (22:15)
--- NOTE | 2023-02-26 22:16 | NUR ---
Did rounds with Dr. Jung via telemedecine. Reviewed all therapies, assessments, labs, and vitals. Overall pt requires less extreme therapies (vasopressors and FiO2 down) but overall intermodal dispatcher picture still looks grim, but for the night MD is happy with his current progress. Still troubled by no kasia low UO and rising liver enzymes/Bili. Notified MD pt has been having some very limited runs of PSVT. Ordered Calcium and magnesium.
[2023-02-26 22:57] LABS: ALANINE AMINOTRANSFERASE 1916 U/L (12-78); ASPARTATE AMINO TRANSFERASE 3919 U/L (10-37)
--- NOTE | 2023-02-26 23:59 | NUR ---
Pt continues to have some PSVT runs and started having some PACs as well as some dropped atrial beats by the looks of it. Perhaps trying to go into Afib? aware.
[2023-02-27] VITALS (37 sets, daily range): BP systolic 84–124; BP diastolic 52–83; PULSE 90–107; RESP 21–31; O2SAT 91–98
[2023-02-27] MEDS: SODIUM BICARB IV SCH ×2 (00:24→09:02)
[2023-02-27] MEDS: [UNRECOGNIZED DRUG - OTHER] IV SCH ×2 (00:24→09:02)
[2023-02-27] MEDS: DOBUTamine-DoBUTrex 500mg/D5W 250 ML IV PRN ×2 (00:25→19:55)
[2023-02-27] MEDS: albumin (Human) 5% 250ml 250 ML IV SCH ×7 (00:48→21:24)
[2023-02-27] MEDS: ampicillin/sulbac 3gm/NS 100ml 100 ML IV SCH ×2 (01:29→08:08)
[2023-02-27 02:26] LABS: APTT 47 SECONDS (22-32); INR 3.6 INR; PROTHROMBIN TIME 35.9 SECONDS (9.0-12.0)
[2023-02-27 02:51] LABS: BASOPHILS % (AUTO) 0.1 % (0-1); EOSINOPHILS % (AUTO) 0.3 % (0-6); HEMATOCRIT 36.9 % (42.0-52.0); HEMOGLOBIN 11.6 g/dl (14.0-17.9); LYMPHOCYTES # (AUTO) 0.8 X10'3 (1.1-4.8); LYMPHOCYTES % (AUTO) 4.8 % (21-51); MEAN CORPUSCULAR HGB CONC 31.5 g/dL (33.0-36.5); MEAN CORPUSCULAR VOLUME 85.7 FL (78-98); MEAN PLATELET VOLUME 8.4 FL (7.4-10.4); MONOCYTES # (AUTO) 0.6 X10'3 (0-0.9); MONOCYTES % (AUTO) 3.9 % (2-12); NEUTROPHILS % (AUTO) 90.9 % (42-75); PLATELET COUNT 99 X10'3 (140-440); RED BLOOD COUNT 4.31 X10'6 (4.70-6.10); WHITE BLOOD COUNT 16.5 X10'3 (4.5-11.0)
[2023-02-27 03:03] LABS: ABG BASE EXCESS -7.3 mmol/L (-2.0-2.0); ABG HCO3 16.6 mmol/L (22.0-26.0); ABG OXYGEN SATURATION 97.4 % (94-97); ABG PH (T) 7.353 (7.340-7.440); ABG PO2 (T) 106.4 mmHg (75.0-100.0); FCOHb 0.2 % (0.0-3.9); FHHb 2.6 % (0.0-5.0); FMetHb 0.3 % (0.0-1.5); FO2Hb 96.9 % (94-97); PATIENT TEMPERATURE 38.3; PEEP 5 cm H2O; RESPIRATORY RATE 22 b/min; TIDAL VOLUME 600 mL; TOTAL HEMOGLOBIN 12.6 G/dl (14.0-17.9)
[2023-02-27 03:45] LABS: ALBUMIN/GLOBULIN RATIO 1.2 (1.1-1.5); ALKALINE PHOSPHATASE 41 IU/L (46-116); ANION GAP 24 (8-16); BILIRUBIN,TOTAL 2.7 MG/DL (0.1-1.0); BLOOD UREA NITROGEN 51 MG/DL (7-18); BUN/CREATININE RATIO 10.6 (10.0-20.0); CHLORIDE 97 MMOL/L (99-107); GLUCOSE 114 MG/DL (70-104); MAGNESIUM 1.7 MG/DL (1.5-2.4); PHOSPHORUS 7.1 MG/DL (2.3-4.5); POTASSIUM 5.4 MMOL/L (3.5-5.1); SODIUM 138 MMOL/L (135-145); TOTAL CARBON DIOXIDE 17.2 MMOL/L (24-32); TOTAL PROTEIN 5.5 G/DL (6.4-8.2); eCRCL 16 ML/MIN; eGFR 13 ML/MIN
--- NOTE | 2023-02-27 04:16 | NUR ---
Reported critical calcium to Dr. Oro. She did not want to replace it this AM given his renal failure and high phos it would not be effective per her.
[2023-02-27] MEDS ORDERED: VANCOMYCIN LEVEL IV ONE (04:30)
[2023-02-27 04:42] LABS: ASPARTATE AMINO TRANSFERASE 3377 U/L (10-37)
[2023-02-27 04:43] LABS: ALANINE AMINOTRANSFERASE 1835 U/L (12-78)
[2023-02-27] MEDS: NORepinephrine inj. 32 MG in normal saline 250ml IV soln 218 ML IV SCH ×3 (05:10→22:11)
[2023-02-27] MEDS: lansoprazole 15mg solutab OGT SCH (07:14)
[2023-02-27] MEDS: hydrocortisone sod succ/PF 100mg/2ml inj. IV SCH ×3 (07:14→15:59)
[2023-02-27] MEDS: fludrocortisone acetate 0.1mg tablet PO SCH ×2 (07:23→17:22)
[2023-02-27] MEDS: FENTANYL-0.9 % NACL/PF 100 ML IV PRN ×2 (07:51→16:24)
[2023-02-27] MEDS ORDERED: levoFLOXACIN-Levaquin 250mg/D5 50 ML IV SCH (08:00)
[2023-02-27] MEDS ORDERED: albumin (human) 25% 100ml IV 100 ML IV PRN (09:05)
[2023-02-27] MEDS ORDERED: mannitol 12.5gm/50mL VIAL IV ONE (09:05)
[2023-02-27] MEDS ORDERED: heparin 1,000 units/ml 10ml inj IV ONE (09:05)
[2023-02-27] MEDS ORDERED: heparin 1,000unit/ml 10ml vial 10 ML IV ONE (09:05)
[2023-02-27] MEDS ORDERED: heparin 1,000 units/ml 10ml inj HE ONE (09:05)
--- NOTE | 2023-02-27 09:16 | NUR ---
Dr. Theodore in to see pt. WOC consult ordered. Photos of LEs obtained and dressings changed to bilat. ALEXA's.
--- NOTE | 2023-02-27 10:29 | NUR ---
TF Consult: Pt remains intubated to start trickle EN at 20ml/hr per community manager this AM; EN recs below. Noted +23.64kg one day wt gain likely error. Will monitor for EN tolerance and further nutrition intervention needs. Rec: 1. Trickle TF per MD using Vital HP at 20ml/hr to provide 480ml volume/day, 480 kcals, 401ml water, and 42g protein. 2. IF TF to advance Vital HP at 70ml/hr goal would provide 1680ml volume/day, 1680 kcals, 1404ml water, and 147g protein. 3. additional water flush per community manager 4. PALB Q /; daily scaled wt 5. routine bowel care 6. upon extubation; advance diet as medically indicated to heart healthy Addendum: 02/27/23 at [address] Amended: Links added.
--- NOTE | 2023-02-27 12:17 | NUR ---
HD started now.
[2023-02-27] MEDS: midazolam 100mg in NS 100ml 100 ML IV PRN (15:53)
--- NOTE | 2023-02-27 18:25 | NUR ---
Patient in room CICU 2013. I have received report from Iraida AMADOR and had the opportunity to ask questions and assume patient care.
[2023-02-27] MEDS: vasopressin inj. 40 UNIT in normal saline 50ml IV soln 38 ML IV SCH (22:16)
--- NOTE | 2023-02-27 22:30 | NUR ---
Debow rounding on patient via tele-med. updated on patient status. New order received to hold TF. No other orders. Will continue to monitor patient.
[2023-02-28] VITALS (37 sets, daily range): BP systolic 102–139; BP diastolic 62–84; PULSE 89–102; RESP 22–34; O2SAT 92–97
[2023-02-28] MEDS: hydrocortisone sod succ/PF 100mg/2ml inj. IV SCH ×4 (00:10→23:53)
[2023-02-28] MEDS: albumin (Human) 5% 250ml 250 ML IV SCH ×8 (00:39→23:54)
[2023-02-28] MEDS: FENTANYL-0.9 % NACL/PF 100 ML IV PRN ×3 (00:40→19:18)
[2023-02-28] MEDS: PHENYLephrine 10mg/ml inj. 100 MG in normal saline 250ml IV soln 240 ML IV SCH (01:49)
[2023-02-28 03:49] LABS: ALBUMIN 3.4 G/DL (3.4-5.0); ANION GAP 19 (8-16); BLOOD UREA NITROGEN 51 MG/DL (7-18); BUN/CREATININE RATIO 11.6 (10.0-20.0); CALCIUM 6.3 MG/DL (8.5-10.1); CHLORIDE 99 MMOL/L (99-107); CREATININE 4.38 MG/DL (0.60-1.10); GLUCOSE 99 MG/DL (70-104); POTASSIUM 5.8 MMOL/L (3.5-5.1); PREALBUMIN 10.3 MG/DL (19-36); SODIUM 136 MMOL/L (135-145); TOTAL CARBON DIOXIDE 18.5 MMOL/L (24-32); eCRCL 18 ML/MIN; eGFR 14 ML/MIN
[2023-02-28 03:51] LABS: BASOPHILS % (AUTO) 0.1 % (0-1); HEMOGLOBIN 11.4 g/dl (14.0-17.9); MONOCYTES # (AUTO) 1.3 X10'3 (0-0.9); WHITE BLOOD COUNT 16.8 X10'3 (4.5-11.0)
[2023-02-28 03:52] LABS: EOSINOPHILS # (AUTO) 0.1 X10'3 (0-0.9); EOSINOPHILS % (AUTO) 0.3 % (0-6); HEMATOCRIT 36.4 % (42.0-52.0); LYMPHOCYTES % (AUTO) 5.9 % (21-51); MEAN CORPUSCULAR HEMOGLOBIN 26.8 PG (27.0-31.0); MEAN CORPUSCULAR HGB CONC 31.4 g/dL (33.0-36.5); MEAN CORPUSCULAR VOLUME 85.4 FL (78-98); MEAN PLATELET VOLUME 9.8 FL (7.4-10.4); MONOCYTES % (AUTO) 7.9 % (2-12); NEUTROPHILS # (AUTO) 14.4 X10'3 (1.8-7.7); NEUTROPHILS % (AUTO) 85.8 % (42-75); PLATELET COUNT 89 X10'3 (140-440); RED BLOOD COUNT 4.26 X10'6 (4.70-6.10); RED CELL DISTRIBUTION WIDTH 16.9 % (11.5-14.5)
[2023-02-28 04:53] LABS: NUCLEATED RED BLOOD CELLS 3 /100WBC (0-0); TOTAL CELLS COUNTED 100
[2023-02-28 04:54] LABS: PLATELET ESTIMATE DECREASED
[2023-02-28 04:56] LABS: MICROCYTOSIS FEW
[2023-02-28 04:57] LABS: ANISOCYTOSIS 2+
[2023-02-28 04:59] LABS: ELLIPTOCYTES FEW
[2023-02-28] MEDS ORDERED: vancomycin/NS 1 GM ADD-VANTAGE 250 ML IV SCH (05:00)
[2023-02-28 05:06] LABS: ABG BASE EXCESS -5.3 mmol/L (-2.0-2.0); ABG HCO3 17.3 mmol/L (22.0-26.0); ABG OXYGEN SATURATION 95.4 % (94-97); ABG PCO2 (T) 27.5 mmHg (35.0-48.0); ABG PH (T) 7.422 (7.340-7.440); ABG PO2 (T) 85.6 mmHg (75.0-100.0); FCOHb 0.1 % (0.0-3.9); FHHb 4.6 % (0.0-5.0); FMetHb 0.3 % (0.0-1.5); MODE VENT - AC; PATIENT TEMPERATURE 38.5; PEEP 5 cm H2O; RESPIRATORY RATE 22 b/min; TIDAL VOLUME 600 mL; TOTAL HEMOGLOBIN 12.5 G/dl (14.0-17.9)
--- NOTE | 2023-02-28 06:00 | NUR ---
Patient in room CICU 2013. I have received report from Debbie AMADOR and had the opportunity to ask questions and assume patient care.
--- NOTE | 2023-02-28 06:38 | NUR ---
Problems reprioritized. Patient report given, questions answered & plan of care reviewed with Lala AMADOR.
[2023-02-28] MEDS: lansoprazole 15mg solutab OGT SCH (07:40)
[2023-02-28] MEDS ORDERED: vancomycin/NS 1 GM ADD-VANTAGE 250 ML IV PRN (08:00)
[2023-02-28 09:58] LABS: PLATELET COUNT 83 X10'3 (140-440)
[2023-02-28 10:17] LABS: APTT 49 SECONDS (22-32); D-DIMER 10.97 MG/L FEU (0-0.50); FIBRINOGEN 410 MG/DL (177-424); INR 2.8 INR; PROTHROMBIN TIME 28.3 SECONDS (9.0-12.0)
[2023-02-28] MEDS: NORepinephrine inj. 32 MG in normal saline 250ml IV soln 218 ML IV SCH (10:22)
--- NOTE | 2023-02-28 10:30 | NUR ---
Discussed in rounds with Dr. Panchal, DIC panel sent, plts are 83, INR 3.6. MD aware and discussed DVT prophylaxis, unable to do SCDs due to cellulitis BLE. ordered eliquis 2.5mg BID for DVT prophylaxis.
[2023-02-28] MEDS ORDERED: apixaban 2.5mg tablet PO SCH (10:50)
[2023-02-28] MEDS: apixaban 2.5mg tablet OGT SCH ×2 (11:34→20:41)
[2023-02-28] MEDS ORDERED: albumin (human) 25% 100ml IV 100 ML IV PRN (11:35)
--- NOTE | 2023-02-28 11:37 | NUR ---
F/u 02/28: Pt remains intubated. TF trickle held last night, noted GRV of 125ml however less than 500ml. TF resumed this morning per RN during CCR. Per MD advance TF to goal rate as tolerated; see recs below. Per CCR round pt has bilateral LE cellulitis and weeping wounds. Wound care has been consulted, pending WOC note. Per RN, pt had dialysis yesterday with 2L removed. Will continue to monitor and make recommendations as appropriate. Recommendations: 1.Continuous TF using Vital HP via OGT with 70ml/hr rate. Begin at 20ml/hr an advance by 20ml Q8H as tolerated to goal rate. Once at goal to provide 1680ml volume/day, 1680 kcals, 1404ml water, and 147g protein. 2. additional water flush per automotive parts interpreter 4. PALB Q /; daily scaled wt 5. routine bowel care 6. upon extubation; advance diet as medically indicated to heart healthy Addendum: 02/28/23 at [address] Amended: Links added.
[2023-02-28] MEDS ORDERED: heparin 1,000 units/ml 10ml inj HE ONE ×2 (11:40)
[2023-02-28] MEDS ORDERED: acetaminophen 325mg/10.15ml oral unit dose solution OGT PRN (13:04)
[2023-02-28] MEDS ORDERED: fludrocortisone acetate 0.1mg tablet OGT SCH (13:06)
[2023-02-28] MEDS ORDERED: magnesium hydroxide 30ml (MOM) UD suspension OGT PRN (13:13)
--- NOTE | 2023-02-28 14:15 | NUR ---
PRESSURE ULCER EDUCATION: DEFINITION: A pressure ulcer is an area of skin that breaks down when you stay in one position too long. The constant pressure against the skin reduces the blood flow to that area and the affected tissue dies. CAUSES: "Being bedridden or in a wheelchair "Fragile skin "Having a chronic condition, such as diabetes or vascular disease "Inability to move certain parts of your body without assistance "Older age "Incontinence of urine or stool SYMPTOMS: "A reddened area that DOES NOT turn white when pressed on - this can be the beginning of a pressure ulcer "A blister, deep sore or a crater - these can be advanced pressure ulcers FIRST AID: "Relieve the pressure on this area "Keep the area clean and dry "Call your primary doctor if you see any of the above symptoms "DO NOT massage the area "DO NOT use a donut shaped or ring shaped pillow- these actually interfere with the blood flow and cause complications PREVENTION: "Check for pressure ulcers everyday "Change position at least every two hours to relieve pressure "Use items that help relieve pressure- pillows, sheepskin, foam padding, and powders. "Keep skin clean and dry "Eat healthy well balanced meals "Exercise daily IF YOU SEE ANY OF THESE SYMPTOMS WHILE IN THE HOSPITAL - TELL YOUR NURSE IMMEDIATELY. IF YOU SEE ANY OF THESE SYMPTOMS WHILE AT HOME OR HAVE ANY QUESTIONS OR CONCERNS ABOUT PRESSURE ULCERS - CALL YOUR PRIMARY DOCTOR IMMEDIATELY. Addendum: 02/28/23 at 1416 by Jayne Jordan RN Amended: Links added.
--- NOTE | 2023-02-28 15:00 | NUR ---
[facility] ordered with [facility]. Confirmation number [id number].
[2023-02-28] MEDS: fludrocortisone acetate 0.1mg tablet OGT SCH (15:24)
[2023-02-28] MEDS: DOBUTamine-DoBUTrex 500mg/D5W 250 ML IV PRN (16:30)
--- NOTE | 2023-02-28 18:10 | NUR ---
Patient in room CICU 2013. I have received report from Lala AMADOR and had the opportunity to ask questions and assume patient care.
--- NOTE | 2023-02-28 18:14 | NUR ---
Problems reprioritized. Patient report given, questions answered & plan of care reviewed with Debbie AMADOR.
[2023-03-01] VITALS (36 sets, daily range): BP systolic 96–122; BP diastolic 49–76; PULSE 84–93; RESP 18–32; O2SAT 91–95
[2023-03-01] MEDS: midazolam 100mg in NS 100ml 100 ML IV PRN (00:30)
[2023-03-01] MEDS: PHENYLephrine 10mg/ml inj. 100 MG in normal saline 250ml IV soln 240 ML IV SCH (02:16)
[2023-03-01 02:40] LABS: BASOPHILS % (AUTO) 0.1 % (0-1); EOSINOPHILS # (AUTO) 0.7 X10'3 (0-0.9); EOSINOPHILS % (AUTO) 5.2 % (0-6); HEMATOCRIT 36.4 % (42.0-52.0); HEMOGLOBIN 11.7 g/dl (14.0-17.9); LYMPHOCYTES # (AUTO) 1.3 X10'3 (1.1-4.8); LYMPHOCYTES % (AUTO) 8.7 % (21-51); MEAN CORPUSCULAR HEMOGLOBIN 26.8 PG (27.0-31.0); MEAN CORPUSCULAR HGB CONC 32.1 g/dL (33.0-36.5); MEAN CORPUSCULAR VOLUME 83.6 FL (78-98); MEAN PLATELET VOLUME 9.4 FL (7.4-10.4); MONOCYTES # (AUTO) 1.3 X10'3 (0-0.9); MONOCYTES % (AUTO) 8.8 % (2-12); NEUTROPHILS # (AUTO) 11.1 X10'3 (1.8-7.7); NEUTROPHILS % (AUTO) 77.2 % (42-75); PLATELET COUNT 76 X10'3 (140-440); RED BLOOD COUNT 4.35 X10'6 (4.70-6.10); RED CELL DISTRIBUTION WIDTH 16.3 % (11.5-14.5); WHITE BLOOD COUNT 14.4 X10'3 (4.5-11.0)
[2023-03-01 02:51] LABS: ALBUMIN 3.4 G/DL (3.4-5.0); ANION GAP 14 (8-16); BLOOD UREA NITROGEN 65 MG/DL (7-18); BUN/CREATININE RATIO 15.4 (10.0-20.0); CALCIUM 6.9 MG/DL (8.5-10.1); CHLORIDE 100 MMOL/L (99-107); CREATININE 4.22 MG/DL (0.60-1.10); GLUCOSE 133 MG/DL (70-104); POTASSIUM 5.1 MMOL/L (3.5-5.1); SODIUM 136 MMOL/L (135-145); eCRCL 18 ML/MIN; eGFR 15 ML/MIN
[2023-03-01 03:16] LABS: ABG BASE EXCESS -0.7 mmol/L (-2.0-2.0); ABG HCO3 20.5 mmol/L (22.0-26.0); ABG OXYGEN SATURATION 92.9 % (94-97); ABG PCO2 (T) 24.7 mmHg (35.0-48.0); ABG PH (T) 7.537 (7.340-7.440); ABG PO2 (T) 62.6 mmHg (75.0-100.0); FCOHb 0.5 % (0.0-3.9); FMetHb 0.3 % (0.0-1.5); FO2Hb 92.2 % (94-97); MODE VENT - prvc; PATIENT TEMPERATURE 36.9; PEEP 5 cm H2O; RESPIRATORY RATE 22 b/min; TIDAL VOLUME 500 mL; TOTAL HEMOGLOBIN 12.7 G/dl (14.0-17.9)
[2023-03-01] MEDS: albumin (Human) 5% 250ml 250 ML IV SCH ×7 (03:43→23:55)
[2023-03-01] MEDS: FENTANYL-0.9 % NACL/PF 100 ML IV PRN ×3 (03:44→17:32)
[2023-03-01] MEDS: NORepinephrine inj. 32 MG in normal saline 250ml IV soln 218 ML IV SCH (05:20)
--- NOTE | 2023-03-01 06:00 | NUR ---
Patient in room CICU 2013. I have received report from Debbie AMADOR and had the opportunity to ask questions and assume patient care.
--- NOTE | 2023-03-01 06:10 | NUR ---
Problems reprioritized. Patient report given, questions answered & plan of care reviewed with Lala AMADOR.
[2023-03-01] MEDS: hydrocortisone sod succ/PF 100mg/2ml inj. IV SCH ×3 (07:13→23:55)
[2023-03-01] MEDS: lansoprazole 15mg solutab OGT SCH (07:13)
[2023-03-01] MEDS: apixaban 2.5mg tablet OGT SCH (07:13)
[2023-03-01] MEDS: fludrocortisone acetate 0.1mg tablet OGT SCH (07:14)
[2023-03-01] MEDS: levoFLOXACIN-Levaquin 250mg/D5 50 ML IV SCH (07:14)
[2023-03-01] MEDS ORDERED: KCentra-PCC 500 unit/20mL vial 100 ML IV ONE (08:50)
[2023-03-01] MEDS ORDERED: [UNRECOGNIZED DRUG - OTHER] IV ONE ×2 (09:00)
[2023-03-01] MEDS ORDERED: PROTHROMBIN COMPLEX CONCENTRATE IV ONE ×2 (09:00)
[2023-03-01 09:34] LABS: ALBUMIN/GLOBULIN RATIO 1.5 (1.1-1.5); ALKALINE PHOSPHATASE 41 IU/L (46-116); ASPARTATE AMINO TRANSFERASE 512 U/L (10-37); BILIRUBIN,TOTAL 5.2 MG/DL (0.1-1.0); TOTAL PROTEIN 5.6 G/DL (6.4-8.2)
[2023-03-01 09:36] LABS: ALANINE AMINOTRANSFERASE 1098 U/L (12-78)
[2023-03-01] MEDS ORDERED: albumin (human) 25% 100ml IV 100 ML IV PRN (11:35)
[2023-03-01] MEDS ORDERED: normal saline 1000ml 250 ML IV PRN (11:35)
[2023-03-01] MEDS: DOBUTamine-DoBUTrex 500mg/D5W 250 ML IV PRN (13:35)
--- NOTE | 2023-03-01 13:42 | NUR ---
F/u 03/01: Pt remains intubated and sedated. Per RN in CCR, pt continues receiving TF and is currently at 40ml/hr rate still advancing to goal of 70ml/hr. Pt appears to be tolerating GRV WNL. Per RN pt received dialysis yesterday removing 1L and plan is for possible dialysis today as well. Per WOC note on 02/28 pt has BLE reddened sloughing skin with fluid filled blisters from bilateral ankles to below the knee. Per RN pt has blisters and "weeping wounds". LBM on 02/24 not receiving bowel care with avilable PRN MoM per EMR, agreeable to giving bowel care. Will continue to monitor closely and make nutrition recommendations as appropriate. Recommendations: 1.Continuous TF using Vital HP via OGT with 70ml/hr rate. Begin at 20ml/hr an advance by 20ml Q8H as tolerated to goal rate. Once at goal to provide 1680ml volume/day, 1680 kcals, 1404ml water, and 147g protein. 2. additional water flush per mortgage processing clerk 4. PALB Q /; daily scaled wt 5. routine bowel care 6. upon extubation; advance diet as medically indicated to heart healthy Addendum: 03/01/23 at [address] Amended: Links added.
--- NOTE | 2023-03-01 14:35 | NUR ---
HD treatment completed as ordered and tolerated procedure well. VSS. 1L UF removed. Changed mode to Sequential /Dry UF X [address] Gaitan and removed 3L as tolerated to maintain SBP >100 mmhg.
[2023-03-01] MEDS: vasopressin inj. 40 UNIT in normal saline 50ml IV soln 38 ML IV SCH (14:44)
[2023-03-01 14:52] LABS: HBSAG SCREEN Negative (Negative)
--- NOTE | 2023-03-01 18:15 | NUR ---
Patient in room CICU 2013. I have received report from Lala AMADOR and had the opportunity to ask questions and assume patient care.
--- NOTE | 2023-03-01 18:21 | NUR ---
Problems reprioritized. Patient report given, questions answered & plan of care reviewed with Debbie AMADOR.
[2023-03-02] VITALS (36 sets, daily range): BP systolic 92–129; BP diastolic 39–70; PULSE 81–91; RESP 20–36; O2SAT 90–95
[2023-03-02] MEDS: FENTANYL-0.9 % NACL/PF 100 ML IV PRN ×3 (01:18→19:33)
[2023-03-02 02:35] LABS: BASOPHILS % (AUTO) 0.1 % (0-1); EOSINOPHILS # (AUTO) 0.1 X10'3 (0-0.9); EOSINOPHILS % (AUTO) 1.1 % (0-6); HEMATOCRIT 34.5 % (42.0-52.0); LYMPHOCYTES # (AUTO) 1.2 X10'3 (1.1-4.8); LYMPHOCYTES % (AUTO) 9.4 % (21-51); MEAN CORPUSCULAR HEMOGLOBIN 26.7 PG (27.0-31.0); MEAN CORPUSCULAR VOLUME 83.5 FL (78-98); MEAN PLATELET VOLUME 9.6 FL (7.4-10.4); MONOCYTES # (AUTO) 1.1 X10'3 (0-0.9); MONOCYTES % (AUTO) 8.9 % (2-12); NEUTROPHILS # (AUTO) 10.2 X10'3 (1.8-7.7); NEUTROPHILS % (AUTO) 80.5 % (42-75); PLATELET COUNT 69 X10'3 (140-440); RED BLOOD COUNT 4.13 X10'6 (4.70-6.10); RED CELL DISTRIBUTION WIDTH 16.6 % (11.5-14.5); WHITE BLOOD COUNT 12.7 X10'3 (4.5-11.0)
[2023-03-02] MEDS: PHENYLephrine 10mg/ml inj. 100 MG in normal saline 250ml IV soln 240 ML IV SCH (02:43)
[2023-03-02 02:47] LABS: ALBUMIN 3.3 G/DL (3.4-5.0); ANION GAP 11 (8-16); BLOOD UREA NITROGEN 77 MG/DL (7-18); BUN/CREATININE RATIO 19.2 (10.0-20.0); CALCIUM 6.9 MG/DL (8.5-10.1); CHLORIDE 101 MMOL/L (99-107); CREATININE 4.02 MG/DL (0.60-1.10); GLUCOSE 138 MG/DL (70-104); POTASSIUM 4.7 MMOL/L (3.5-5.1); SODIUM 138 MMOL/L (135-145); TOTAL CARBON DIOXIDE 26.1 MMOL/L (24-32); VANCOMYCIN,RANDOM 18.6 ug/mL (20.0-30.0); eCRCL 19 ML/MIN; eGFR 16 ML/MIN
[2023-03-02 03:15] LABS: ANISOCYTOSIS 1+; PLATELET ESTIMATE DECREASED
[2023-03-02 03:16] LABS: BURR CELLS FEW; ELLIPTOCYTES FEW
[2023-03-02 03:25] LABS: ABG BASE EXCESS 0.4 mmol/L (-2.0-2.0); ABG HCO3 24.1 mmol/L (22.0-26.0); ABG PCO2 (T) 35.2 mmHg (35.0-48.0); ABG PH (T) 7.452 (7.340-7.440); ABG PO2 (T) 57.6 mmHg (75.0-100.0); FCOHb 0.4 % (0.0-3.9); FHHb 8.9 % (0.0-5.0); FMetHb 0.3 % (0.0-1.5); FO2Hb 90.4 % (94-97); MODE VENT - prvc; PATIENT TEMPERATURE 36.7; PEEP 5 cm H2O; RESPIRATORY RATE 18 b/min; TIDAL VOLUME 550 mL; TOTAL HEMOGLOBIN 11.9 G/dl (14.0-17.9)
--- NOTE | 2023-03-02 06:08 | NUR ---
Problems reprioritized. Patient report given, questions answered & plan of care reviewed with Parmjit AMADOR.
[2023-03-02] MEDS: albumin (Human) 5% 250ml 250 ML IV SCH ×3 (07:04→12:10)
[2023-03-02] MEDS: lansoprazole 15mg solutab OGT SCH (07:05)
[2023-03-02] MEDS ORDERED: albumin (human) 25% 100ml IV 100 ML IV PRN (08:00)
[2023-03-02] MEDS ORDERED: heparin 1,000 units/ml 10ml inj HE ONE ×2 (08:00)
[2023-03-02] MEDS: fludrocortisone acetate 0.1mg tablet OGT SCH (08:24)
[2023-03-02] MEDS: hydrocortisone sod succ/PF 100mg/2ml inj. IV SCH ×3 (08:24→23:55)
[2023-03-02] MEDS: DOBUTamine-DoBUTrex 500mg/D5W 250 ML IV PRN (09:22)
[2023-03-02 10:06] LABS: ALANINE AMINOTRANSFERASE 574 U/L (12-78); ALKALINE PHOSPHATASE 60 IU/L (46-116); ASPARTATE AMINO TRANSFERASE 211 U/L (10-37); BILIRUBIN,DIRECT 4.4 MG/DL (0-0.3); BILIRUBIN,TOTAL 6.8 MG/DL (0.1-1.0)
[2023-03-02 10:08] LABS: ALBUMIN/GLOBULIN RATIO 1.7 (1.1-1.5); TOTAL PROTEIN 5.3 G/DL (6.4-8.2)
[2023-03-02] MEDS: NORepinephrine 8mg/ 250ml NS 250 ML IV SCH ×2 (10:43→20:30)
--- NOTE | 2023-03-02 18:25 | NUR ---
Patient in room CICU 2013. I have received report from Parmjit AMADOR and had the opportunity to ask questions and assume patient care.
[2023-03-03] VITALS (35 sets, daily range): BP systolic 94–135; BP diastolic 42–74; PULSE 78–92; RESP 19–33; O2SAT 92–97
[2023-03-03 02:53] LABS: HEMOGLOBIN 11.9 g/dl (14.0-17.9); LYMPHOCYTES # (AUTO) 1.1 X10'3 (1.1-4.8); MEAN CORPUSCULAR HGB CONC 32.2 g/dL (33.0-36.5); MONOCYTES # (AUTO) 1.1 X10'3 (0-0.9); PLATELET COUNT 93 X10'3 (140-440); RED CELL DISTRIBUTION WIDTH 16.8 % (11.5-14.5)
[2023-03-03 02:56] LABS: BASOPHILS % (AUTO) 0.1 % (0-1); EOSINOPHILS # (AUTO) 0.2 X10'3 (0-0.9); HEMATOCRIT 36.9 % (42.0-52.0); MEAN CORPUSCULAR VOLUME 83.7 FL (78-98); MEAN PLATELET VOLUME 10.1 FL (7.4-10.4); NEUTROPHILS # (AUTO) 13.8 X10'3 (1.8-7.7); NEUTROPHILS % (AUTO) 84.9 % (42-75); RED BLOOD COUNT 4.41 X10'6 (4.70-6.10); WHITE BLOOD COUNT 16.2 X10'3 (4.5-11.0)
[2023-03-03] MEDS: VANCOMYCIN LEVEL IV SCH (03:00)
[2023-03-03 03:10] LABS: ANION GAP 14 (8-16); BLOOD UREA NITROGEN 91 MG/DL (7-18); BUN/CREATININE RATIO 23.4 (10.0-20.0); CALCIUM 7.3 MG/DL (8.5-10.1); CHLORIDE 101 MMOL/L (99-107); CREATININE 3.89 MG/DL (0.60-1.10); GLUCOSE 140 MG/DL (70-104); POTASSIUM 4.4 MMOL/L (3.5-5.1); SODIUM 138 MMOL/L (135-145); TOTAL CARBON DIOXIDE 23.3 MMOL/L (24-32); VANCOMYCIN,RANDOM 14.3 ug/mL (20.0-30.0); eCRCL 20 ML/MIN; eGFR 16 ML/MIN
[2023-03-03 03:48] LABS: ABG BASE EXCESS -1.2 mmol/L (-2.0-2.0); ABG HCO3 22.1 mmol/L (22.0-26.0); ABG OXYGEN SATURATION 93.3 % (94-97); ABG PCO2 (T) 32.6 mmHg (35.0-48.0); ABG PH (T) 7.448 (7.340-7.440); FCOHb 0.7 % (0.0-3.9); FHHb 6.6 % (0.0-5.0); FMetHb 0.3 % (0.0-1.5); FO2Hb 92.4 % (94-97); PATIENT TEMPERATURE 36.8; PEEP 5 cm H2O; RESPIRATORY RATE 18 b/min; TIDAL VOLUME 550 mL
[2023-03-03 03:53] LABS: NUCLEATED RED BLOOD CELLS 2 /100WBC (0-0); TOTAL CELLS COUNTED 100
[2023-03-03 04:13] LABS: ANISOCYTOSIS 1+; PLATELET ESTIMATE DECREASED
[2023-03-03 04:14] LABS: BURR CELLS 1+; ELLIPTOCYTES FEW; LARGE PLATELETS FEW
[2023-03-03] MEDS: DOBUTamine-DoBUTrex 500mg/D5W 250 ML IV PRN (04:56)
[2023-03-03] MEDS: FENTANYL-0.9 % NACL/PF 100 ML IV PRN ×4 (04:56→23:19)
[2023-03-03] MEDS: NORepinephrine 8mg/ 250ml NS 250 ML IV SCH (06:17)
[2023-03-03] MEDS: hydrocortisone sod succ/PF 100mg/2ml inj. IV SCH ×3 (07:36→23:57)
[2023-03-03] MEDS: levoFLOXACIN-Levaquin 250mg/D5 50 ML IV SCH (07:36)
[2023-03-03] MEDS: lansoprazole 15mg solutab OGT SCH (07:36)
[2023-03-03] MEDS ORDERED: vancomycin/NS 1 GM ADD-VANTAGE 250 ML IV ONE (07:55)
[2023-03-03 08:15] LABS: ALANINE AMINOTRANSFERASE 405 U/L (12-78); ALKALINE PHOSPHATASE 136 IU/L (46-116); ASPARTATE AMINO TRANSFERASE 164 U/L (10-37); BILIRUBIN,DIRECT 5.5 MG/DL (0-0.3); BILIRUBIN,TOTAL 8.2 MG/DL (0.1-1.0)
[2023-03-03 08:17] LABS: ALBUMIN/GLOBULIN RATIO 1.4 (1.1-1.5); PHOSPHORUS 5.4 MG/DL (2.3-4.5); TOTAL PROTEIN 5.2 G/DL (6.4-8.2)
[2023-03-03] MEDS ORDERED: albumin (human) 25% 100ml IV 100 ML IV PRN (09:00)
[2023-03-03] MEDS ORDERED: normal saline 1000ml 250 ML IV PRN (09:00)
--- NOTE | 2023-03-03 18:12 | NUR ---
Problems reprioritized. Patient report given, questions answered & plan of care reviewed with Nori AMADOR.
--- NOTE | 2023-03-03 18:30 | NUR ---
Patient in room CICU 2013. I have received report from Yassine AMADOR and had the opportunity to ask questions and assume patient care.
[2023-03-04] VITALS (35 sets, daily range): BP systolic 90–140; BP diastolic 40–69; PULSE 65–97; RESP 20–36; O2SAT 92–96
[2023-03-04] MEDS: DOBUTamine-DoBUTrex 500mg/D5W 250 ML IV PRN ×2 (01:25→19:33)
[2023-03-04 02:53] LABS: BASOPHILS % (AUTO) 0.1 % (0-1); EOSINOPHILS % (AUTO) 0.1 % (0-6); HEMATOCRIT 36.6 % (42.0-52.0); HEMOGLOBIN 11.9 g/dl (14.0-17.9); LYMPHOCYTES # (AUTO) 1.1 X10'3 (1.1-4.8); LYMPHOCYTES % (AUTO) 5.5 % (21-51); MEAN CORPUSCULAR HGB CONC 32.6 g/dL (33.0-36.5); MEAN CORPUSCULAR VOLUME 82.9 FL (78-98); MEAN PLATELET VOLUME 9.5 FL (7.4-10.4); MONOCYTES # (AUTO) 1.7 X10'3 (0-0.9); MONOCYTES % (AUTO) 8.4 % (2-12); NEUTROPHILS # (AUTO) 17.6 X10'3 (1.8-7.7); NEUTROPHILS % (AUTO) 85.9 % (42-75); PLATELET COUNT 123 X10'3 (140-440); RED BLOOD COUNT 4.42 X10'6 (4.70-6.10); WHITE BLOOD COUNT 20.5 X10'3 (4.5-11.0)
[2023-03-04] MEDS: VANCOMYCIN LEVEL IV SCH (03:00)
[2023-03-04 03:02] LABS: ALBUMIN 2.9 G/DL (3.4-5.0); ANION GAP 14 (8-16); BLOOD UREA NITROGEN 121 MG/DL (7-18); BUN/CREATININE RATIO 26.6 (10.0-20.0); CALCIUM 7.2 MG/DL (8.5-10.1); CHLORIDE 101 MMOL/L (99-107); CREATININE 4.55 MG/DL (0.60-1.10); GLUCOSE 131 MG/DL (70-104); POTASSIUM 4.4 MMOL/L (3.5-5.1); SODIUM 138 MMOL/L (135-145); TOTAL CARBON DIOXIDE 22.7 MMOL/L (24-32); eCRCL 17 ML/MIN; eGFR 14 ML/MIN
[2023-03-04 03:16] LABS: VANCOMYCIN,RANDOM 20.3 ug/mL (20.0-30.0)
[2023-03-04 03:27] LABS: ABG BASE EXCESS -2.1 mmol/L (-2.0-2.0); ABG HCO3 21.5 mmol/L (22.0-26.0); ABG OXYGEN SATURATION 95.1 % (94-97); ABG PCO2 (T) 32.5 mmHg (35.0-48.0); ABG PH (T) 7.436 (7.340-7.440); ABG PO2 (T) 69.3 mmHg (75.0-100.0); FCOHb 0.7 % (0.0-3.9); FHHb 4.9 % (0.0-5.0); FMetHb 0.3 % (0.0-1.5); FO2Hb 94.1 % (94-97); MODE Vent AC PRVC; PATIENT TEMPERATURE 36.6; PEEP 5 cm H2O; RESPIRATORY RATE 18 b/min; TIDAL VOLUME 550 mL; TOTAL HEMOGLOBIN 12.7 G/dl (14.0-17.9)
[2023-03-04] MEDS: FENTANYL-0.9 % NACL/PF 100 ML IV PRN ×2 (04:23→14:42)
[2023-03-04] MEDS: dexmedetomidin/NS 400mcg/100ml 100 ML IV SCH ×4 (04:24→19:07)
[2023-03-04] MEDS ORDERED: VANCOMYCIN LEVEL IV ONE (04:30)
--- NOTE | 2023-03-04 06:26 | NUR ---
Problems reprioritized. Patient report given, questions answered & plan of care reviewed with Yassine AMADOR.
[2023-03-04] MEDS: hydrocortisone sod succ/PF 100mg/2ml inj. IV SCH (07:57)
[2023-03-04] MEDS: lansoprazole 15mg solutab OGT SCH (07:58)
[2023-03-04] MEDS ORDERED: heparin 1,000unit/ml 10ml vial 10 ML IV ONE (08:00)
[2023-03-04] MEDS ORDERED: heparin 1,000 units/ml 10ml inj HE ONE ×2 (08:00)
[2023-03-04] MEDS ORDERED: heparin 1,000 units/ml 10ml inj IV ONE (08:00)
[2023-03-04] MEDS ORDERED: EPOETIN ALFA-EPBX 20,000 UNIT/ML 1 ML MDV IV ONE (08:00)
--- NOTE | 2023-03-04 11:04 | NUR ---
Reassessment: Pt remains intubated and tolerating TF at goal rate with GRV WNL. Pt continues receiving dialysis for fluid removal, documented with 5 L out 03/03 per I&O. Pt with a rectal tube in place, documented with 400 mL stool output 03/03 per I&O. No changes to nutrition recommendations at this time. Will continue to follow and make recommendations as appropriate. Recommendations: 1. Continuous TF via OGT using Vital HP with 70 mL/hr goal rate to provide 1680 mL volume/day, 1680 kcal, 147 g protein, and 1405 mL water 2. Additional water flush per cuff runner given dialysis; monitor serum Na 4. PALB q Tuesday/ 5. Daily scaled weights 6. Bowel care per physician Addendum: 03/04/23 at [address] Amended: Links added.
[2023-03-04] MEDS ORDERED: albumin (human) 25% 100 ML IV solution IV ONE (12:00)
[2023-03-04] MEDS ORDERED: lactose-reduced food (Ensure Enlive) - 237ml bottle PO SCH (13:00)
[2023-03-04] MEDS ORDERED: tPA-cathflo 2 MG/2 ml IV flush IVF ONE (14:25)
--- NOTE | 2023-03-04 18:30 | NUR ---
Patient in room CICU 2013. I have received report from Yassine AMADOR and had the opportunity to ask questions and assume patient care.
--- NOTE | 2023-03-04 18:34 | NUR ---
Problems reprioritized. Patient report given, questions answered & plan of care reviewed with Mia AMADOR.
[2023-03-05] VITALS (36 sets, daily range): BP systolic 100–134; BP diastolic 42–72; PULSE 26–84; RESP 19–35; O2SAT 94–100
[2023-03-05] MEDS: dexmedetomidin/NS 400mcg/100ml 100 ML IV SCH ×4 (02:57→21:20)
[2023-03-05] MEDS: FENTANYL-0.9 % NACL/PF 100 ML IV PRN ×3 (02:58→20:15)
[2023-03-05] MEDS: VANCOMYCIN LEVEL IV SCH (03:00)
[2023-03-05 03:04] LABS: BASOPHILS # (AUTO) 0.1 X10'3 (0-0.2); BASOPHILS % (AUTO) 0.5 % (0-1); EOSINOPHILS % (AUTO) 0.2 % (0-6); HEMATOCRIT 33.1 % (42.0-52.0); HEMOGLOBIN 10.9 g/dl (14.0-17.9); LYMPHOCYTES # (AUTO) 1.3 X10'3 (1.1-4.8); LYMPHOCYTES % (AUTO) 7.4 % (21-51); MEAN CORPUSCULAR HGB CONC 32.8 g/dL (33.0-36.5); MEAN CORPUSCULAR VOLUME 82.3 FL (78-98); MEAN PLATELET VOLUME 9.4 FL (7.4-10.4); MONOCYTES # (AUTO) 1.2 X10'3 (0-0.9); MONOCYTES % (AUTO) 6.7 % (2-12); NEUTROPHILS # (AUTO) 15.4 X10'3 (1.8-7.7); NEUTROPHILS % (AUTO) 85.2 % (42-75); PLATELET COUNT 141 X10'3 (140-440); RED BLOOD COUNT 4.03 X10'6 (4.70-6.10); RED CELL DISTRIBUTION WIDTH 16.9 % (11.5-14.5); WHITE BLOOD COUNT 18.1 X10'3 (4.5-11.0)
[2023-03-05 03:10] LABS: ALBUMIN 2.6 G/DL (3.4-5.0); ANION GAP 16 (8-16); BLOOD UREA NITROGEN 134 MG/DL (7-18); BUN/CREATININE RATIO 28.9 (10.0-20.0); CALCIUM 7.1 MG/DL (8.5-10.1); CHLORIDE 101 MMOL/L (99-107); CREATININE 4.64 MG/DL (0.60-1.10); GLUCOSE 114 MG/DL (70-104); POTASSIUM 4.2 MMOL/L (3.5-5.1); SODIUM 138 MMOL/L (135-145); TOTAL CARBON DIOXIDE 20.9 MMOL/L (24-32); eCRCL 17 ML/MIN; eGFR 13 ML/MIN
[2023-03-05 03:49] LABS: VANCOMYCIN,RANDOM 13.7 ug/mL (20.0-30.0)
[2023-03-05 04:01] LABS: ABG BASE EXCESS -5.4 mmol/L (-2.0-2.0); ABG HCO3 17.7 mmol/L (22.0-26.0); ABG OXYGEN SATURATION 96.5 % (94-97); ABG PCO2 (T) 27.5 mmHg (35.0-48.0); ABG PH (T) 7.426 (7.340-7.440); ABG PO2 (T) 83.5 mmHg (75.0-100.0); FCOHb 0.4 % (0.0-3.9); FHHb 3.5 % (0.0-5.0); FMetHb 0.3 % (0.0-1.5); FO2Hb 95.8 % (94-97); MODE ac/prvc; PEEP 5 cm H2O; RESPIRATORY RATE 18 b/min; TIDAL VOLUME 550 mL; TOTAL HEMOGLOBIN 11.6 G/dl (14.0-17.9)
[2023-03-05 05:22] LABS: PLATELET ESTIMATE NORMAL; TOTAL CELLS COUNTED 100
[2023-03-05 05:23] LABS: ANISOCYTOSIS 1+
[2023-03-05 05:24] LABS: TOXIC GRANULATION 1+
[2023-03-05 05:26] LABS: NUCLEATED RED BLOOD CELLS 1 /100WBC (0-0); POLYCHROMASIA 1+
[2023-03-05 05:27] LABS: ELLIPTOCYTES FEW
[2023-03-05 06:51] LABS: C DIFF ANTIGEN NEGATIVE (NEGATIVE); C DIFF SPECIMEN=DIARRHEA? ACCEPTABLE
--- NOTE | 2023-03-05 06:51 | NUR ---
Problems reprioritized. Patient report given, questions answered & plan of care reviewed with Yassine AMADOR.
[2023-03-05] MEDS ORDERED: vancomycin/NS 1 GM ADD-VANTAGE 250 ML IV ONE (08:00)
[2023-03-05] MEDS: levoFLOXACIN-Levaquin 250mg/D5 50 ML IV SCH (08:13)
[2023-03-05] MEDS: lansoprazole 15mg solutab OGT SCH (08:13)
[2023-03-05] MEDS ORDERED: EPOETIN ALFA-EPBX 20,000 UNIT/ML 1 ML MDV IV ONE (08:25)
[2023-03-05] MEDS ORDERED: mannitol 12.5gm/50mL VIAL IV ONE (08:25)
[2023-03-05] MEDS ORDERED: heparin 1,000unit/ml 10ml vial 10 ML IV ONE (08:25)
[2023-03-05] MEDS ORDERED: normal saline 1000ml 250 ML IV PRN (08:25)
[2023-03-05] MEDS ORDERED: heparin 1,000 units/ml 10ml inj HE ONE ×2 (08:30)
[2023-03-05] MEDS: DOBUTamine-DoBUTrex 500mg/D5W 250 ML IV PRN (14:45)
[2023-03-05] MEDS ORDERED: furosemide 40mg/4ml inj ONE (17:02)
--- NOTE | 2023-03-05 18:30 | NUR ---
Patient in room CICU 2013. I have received report from Yassine AMADOR and had the opportunity to ask questions and assume patient care.
--- NOTE | 2023-03-05 18:47 | NUR ---
Problems reprioritized. Patient report given, questions answered & plan of care reviewed with Nori AMADOR.
[2023-03-06] VITALS (35 sets, daily range): BP systolic 83–123; BP diastolic 48–75; PULSE 66–95; RESP 14–29; O2SAT 90–99
[2023-03-06] MEDS: dexmedetomidin/NS 400mcg/100ml 100 ML IV SCH ×5 (01:59→21:22)
[2023-03-06] MEDS: VANCOMYCIN LEVEL IV SCH (02:56)
[2023-03-06 02:59] LABS: BASOPHILS # (AUTO) 0.1 X10'3 (0-0.2); BASOPHILS % (AUTO) 0.2 % (0-1); EOSINOPHILS # (AUTO) 0.1 X10'3 (0-0.9); EOSINOPHILS % (AUTO) 0.7 % (0-6); HEMATOCRIT 34.4 % (42.0-52.0); LYMPHOCYTES # (AUTO) 0.7 X10'3 (1.1-4.8); LYMPHOCYTES % (AUTO) 3.5 % (21-51); MEAN CORPUSCULAR HEMOGLOBIN 26.5 PG (27.0-31.0); MEAN CORPUSCULAR HGB CONC 31.9 g/dL (33.0-36.5); MEAN CORPUSCULAR VOLUME 82.8 FL (78-98); MEAN PLATELET VOLUME 8.8 FL (7.4-10.4); MONOCYTES # (AUTO) 1.7 X10'3 (0-0.9); NEUTROPHILS # (AUTO) 18.3 X10'3 (1.8-7.7); NEUTROPHILS % (AUTO) 87.6 % (42-75); PLATELET COUNT 151 X10'3 (140-440); RED BLOOD COUNT 4.15 X10'6 (4.70-6.10); RED CELL DISTRIBUTION WIDTH 17.2 % (11.5-14.5); WHITE BLOOD COUNT 20.9 X10'3 (4.5-11.0)
[2023-03-06 03:04] LABS: ALBUMIN 2.5 G/DL (3.4-5.0); ANION GAP 15 (8-16); BLOOD UREA NITROGEN 100 MG/DL (7-18); BUN/CREATININE RATIO 28.2 (10.0-20.0); CALCIUM 7.4 MG/DL (8.5-10.1); CHLORIDE 101 MMOL/L (99-107); CREATININE 3.55 MG/DL (0.60-1.10); GLUCOSE 113 MG/DL (70-104); POTASSIUM 4.4 MMOL/L (3.5-5.1); SODIUM 138 MMOL/L (135-145); TOTAL CARBON DIOXIDE 22.2 MMOL/L (24-32); VANCOMYCIN,RANDOM 15.9 ug/mL (20.0-30.0); eCRCL 22 ML/MIN; eGFR 18 ML/MIN
[2023-03-06 03:58] LABS: ABG BASE EXCESS -3.6 mmol/L (-2.0-2.0); ABG HCO3 20.1 mmol/L (22.0-26.0); ABG OXYGEN SATURATION 97.1 % (94-97); ABG PCO2 (T) 31.7 mmHg (35.0-48.0); ABG PH (T) 7.419 (7.340-7.440); ABG PO2 (T) 89.6 mmHg (75.0-100.0); FCOHb 0.8 % (0.0-3.9); FHHb 2.9 % (0.0-5.0); FMetHb 0.3 % (0.0-1.5); MODE ac/prvc; PEEP 5 cm H2O; RESPIRATORY RATE 18 b/min; TIDAL VOLUME 550 mL; TOTAL HEMOGLOBIN 11.9 G/dl (14.0-17.9)
[2023-03-06 04:21] LABS: TOTAL CELLS COUNTED 100
[2023-03-06 04:22] LABS: ANISOCYTOSIS 1+; HYPOCHROMASIA 1+; PLATELET ESTIMATE NORMAL
[2023-03-06 04:24] LABS: ELLIPTOCYTES FEW
--- NOTE | 2023-03-06 06:00 | NUR ---
Patient in room CICU 2013. I have received report from Nori AMADOR and had the opportunity to ask questions and assume patient care.
--- NOTE | 2023-03-06 06:17 | NUR ---
Problems reprioritized. Patient report given, questions answered & plan of care reviewed with Lala AMADOR.
[2023-03-06] MEDS ORDERED: normal saline 1000ml 250 ML IV PRN (06:25)
[2023-03-06] MEDS: heparin 1,000unit/ml 10ml vial 10 ML IV ONE ×2 (06:25→12:40)
[2023-03-06] MEDS: FENTANYL-0.9 % NACL/PF 100 ML IV PRN (06:29)
[2023-03-06] MEDS: lansoprazole 15mg solutab OGT SCH (07:40)
[2023-03-06 08:20] LABS: C DIFFICILE TOXINS A&B NEGATIVE (Neg)
[2023-03-06] MEDS: DOBUTamine-DoBUTrex 500mg/D5W 250 ML IV PRN (09:35)
[2023-03-06] MEDS ORDERED: furosemide 40mg/4ml inj IV ONE (10:18)
[2023-03-06] MEDS: mannitol 12.5gm/50mL VIAL IV ONE ×2 (10:45→13:06)
[2023-03-06] MEDS: heparin 1,000 units/ml 10ml inj HE ONE ×4 (10:46→13:03)
[2023-03-06] MEDS ORDERED: tPA-cathflo 2 MG/2 ml IV flush IVF ONE (10:50)
--- NOTE | 2023-03-06 13:00 | NUR ---
Unable to complete HD treatment due to HD catheter malfunction. Dr Gallego made aware.
[2023-03-06] MEDS ORDERED: dextrose 50%-water 50ml dispensing syringe IV ONE ×3 (14:28→22:56)
[2023-03-06] MEDS: furosemide 40mg/4ml inj IV SCH (16:00)
--- NOTE | 2023-03-06 18:30 | NUR ---
Problems reprioritized. Patient report given, questions answered & plan of care reviewed with Laura AMADOR.
--- NOTE | 2023-03-06 18:30 | NUR ---
Patient in room CICU 2013. I have received report from Lala AMADOR and had the opportunity to ask questions and assume patient care.
[2023-03-06] MEDS ORDERED: sodium chloride inj. 154 MEQ in Dextrose 10%-water IV solution 961.5 ML IV SCH (23:10)
[2023-03-06] MEDS ORDERED: Dextrose 10%-water IV solution 1,000 ML IV SCH (23:20)
[2023-03-07] VITALS (25 sets, daily range): BP systolic 89–135; BP diastolic 45–71; PULSE 64–101; RESP 12–36; O2SAT 92–99
[2023-03-07] MEDS: furosemide 40mg/4ml inj IV SCH
[2023-03-07] MEDS: VANCOMYCIN LEVEL IV SCH (03:00)
[2023-03-07] MEDS: morphine 2 MG/ML inj. syringe IV PRN ×3 (03:35→15:31)
[2023-03-07] MEDS: dexmedetomidin/NS 400mcg/100ml 100 ML IV SCH (03:39)
--- NOTE | 2023-03-07 06:17 | NUR ---
Problems reprioritized. Patient report given, questions answered & plan of care reviewed with Lala AMADOR.
--- NOTE | 2023-03-07 06:45 | NUR ---
Patient in room CICU 2013. I have received report from Laura AMADOR and had the opportunity to ask questions and assume patient care.
[2023-03-07] MEDS: lansoprazole 15mg solutab OGT SCH (08:05)
[2023-03-07] MEDS: levoFLOXACIN-Levaquin 250mg/D5 50 ML IV SCH (08:05)
[2023-03-07 08:07] LABS: BASOPHILS # (AUTO) 0.1 X10'3 (0-0.2); BASOPHILS % (AUTO) 0.3 % (0-1); EOSINOPHILS # (AUTO) 0.3 X10'3 (0-0.9); EOSINOPHILS % (AUTO) 1.4 % (0-6); HEMATOCRIT 35.8 % (42.0-52.0); HEMOGLOBIN 11.3 g/dl (14.0-17.9); LYMPHOCYTES # (AUTO) 0.7 X10'3 (1.1-4.8); LYMPHOCYTES % (AUTO) 2.8 % (21-51); MEAN CORPUSCULAR HEMOGLOBIN 26.6 PG (27.0-31.0); MEAN CORPUSCULAR HGB CONC 31.6 g/dL (33.0-36.5); MEAN CORPUSCULAR VOLUME 84.1 FL (78-98); MEAN PLATELET VOLUME 8.8 FL (7.4-10.4); MONOCYTES # (AUTO) 1.9 X10'3 (0-0.9); MONOCYTES % (AUTO) 8.3 % (2-12); NEUTROPHILS # (AUTO) 20.4 X10'3 (1.8-7.7); NEUTROPHILS % (AUTO) 87.2 % (42-75); PLATELET COUNT 161 X10'3 (140-440); RED BLOOD COUNT 4.26 X10'6 (4.70-6.10); RED CELL DISTRIBUTION WIDTH 17.5 % (11.5-14.5); WHITE BLOOD COUNT 23.4 X10'3 (4.5-11.0)
[2023-03-07 08:28] LABS: ALANINE AMINOTRANSFERASE 125 U/L (12-78); ALBUMIN 2.6 G/DL (3.4-5.0); ALBUMIN/GLOBULIN RATIO 0.8 (1.1-1.5); ALKALINE PHOSPHATASE 111 IU/L (46-116); ANION GAP 14 (8-16); ASPARTATE AMINO TRANSFERASE 31 U/L (10-37); BILIRUBIN,DIRECT 1.3 MG/DL (0-0.3); BILIRUBIN,TOTAL 2.1 MG/DL (0.1-1.0); BLOOD UREA NITROGEN 121 MG/DL (7-18); BUN/CREATININE RATIO 29.4 (10.0-20.0); CALCIUM 7.8 MG/DL (8.5-10.1); CHLORIDE 99 MMOL/L (99-107); CREATININE 4.12 MG/DL (0.60-1.10); GLUCOSE 102 MG/DL (70-104); MAGNESIUM 2.1 MG/DL (1.5-2.4); POTASSIUM 4.8 MMOL/L (3.5-5.1); SODIUM 135 MMOL/L (135-145); TOTAL CARBON DIOXIDE 22.1 MMOL/L (24-32); VANCOMYCIN,RANDOM 15.3 ug/mL (20.0-30.0); eCRCL 19 ML/MIN; eGFR 15 ML/MIN
[2023-03-07 08:29] LABS: PHOSPHORUS 9.2 MG/DL (2.3-4.5)
--- NOTE | 2023-03-07 10:25 | NUR ---
F/u 03/07: Pt extubated 03/06 advanced to heart healthy diet pending first PO this AM. Last HD 03/05 waiting to see if needs further HD w/ Phos 9.2mg/dl this AM per EMR; ZEENAT d/w RN regarding phos binder per MD discretion. Rectal tube remains -100ml output past 24 hours per EMR. Will monitor for PO trends and further nutrition intervention needs this admit. Recommendations: 1. Continue heart healthy diet per MD; if eating most of meals consider transition to renal diet 2. Monitor PO trends for ONS needs 3. consider Phos binder per physician discretion; Phos 9.2mg/dl this AM s/p HD 03/05 4. bowel care per rx 5. Daily scaled weights Addendum: 03/07/23 at [address] Amended: Links added.
[2023-03-07] MEDS: HYDROcodone/acetaminophen 10/325mg tab PO PRN ×2 (12:19→20:42)
--- NOTE | 2023-03-07 18:19 | NUR ---
Problems reprioritized. Patient report given, questions answered & plan of care reviewed with Yuly AMADOR.
[2023-03-07] MEDS: calcium acetate 667mg (PhosLO) capsule PO SCH (18:23)
[2023-03-08] VITALS (22 sets, daily range): BP systolic 91–130; BP diastolic 48–72; PULSE 90–100; RESP 15–33; TEMP 98.4–101.2; O2SAT 93–98
--- NOTE | 2023-03-08 06:00 | NUR ---
Patient in room CICU 2013. I have received report from Yuly AMADOR and had the opportunity to ask questions and assume patient care.
[2023-03-08] MEDS: VANCOMYCIN LEVEL IV SCH (06:47)
[2023-03-08] MEDS: lansoprazole 15mg solutab OGT SCH (08:14)
[2023-03-08] MEDS: calcium acetate 667mg (PhosLO) capsule PO SCH ×3 (08:14→18:09)
[2023-03-08 10:09] LABS: BASOPHILS # (AUTO) 0.1 X10'3 (0-0.2); BASOPHILS % (AUTO) 0.2 % (0-1); EOSINOPHILS # (AUTO) 0.2 X10'3 (0-0.9); EOSINOPHILS % (AUTO) 0.8 % (0-6); HEMOGLOBIN 11.2 g/dl (14.0-17.9); LYMPHOCYTES # (AUTO) 0.6 X10'3 (1.1-4.8); LYMPHOCYTES % (AUTO) 2.5 % (21-51); MEAN CORPUSCULAR HEMOGLOBIN 26.6 PG (27.0-31.0); MEAN CORPUSCULAR VOLUME 83.1 FL (78-98); MEAN PLATELET VOLUME 8.6 FL (7.4-10.4); MONOCYTES # (AUTO) 2.4 X10'3 (0-0.9); MONOCYTES % (AUTO) 10.2 % (2-12); NEUTROPHILS # (AUTO) 19.9 X10'3 (1.8-7.7); NEUTROPHILS % (AUTO) 86.3 % (42-75); PLATELET COUNT 232 X10'3 (140-440); RED BLOOD COUNT 4.21 X10'6 (4.70-6.10); RED CELL DISTRIBUTION WIDTH 17.1 % (11.5-14.5); WHITE BLOOD COUNT 23.1 X10'3 (4.5-11.0)
[2023-03-08] MEDS ORDERED: normal saline 500ml IV soln 500 ML IV ONE (10:15)
[2023-03-08 10:21] LABS: ALANINE AMINOTRANSFERASE 96 U/L (12-78); ALBUMIN 2.5 G/DL (3.4-5.0); ALBUMIN/GLOBULIN RATIO 0.7 (1.1-1.5); ALKALINE PHOSPHATASE 122 IU/L (46-116); ANION GAP 15 (8-16); ASPARTATE AMINO TRANSFERASE 32 U/L (10-37); BLOOD UREA NITROGEN 127 MG/DL (7-18); BUN/CREATININE RATIO 27.9 (10.0-20.0); CALCIUM 7.9 MG/DL (8.5-10.1); CHLORIDE 100 MMOL/L (99-107); CREATININE 4.56 MG/DL (0.60-1.10); GLUCOSE 123 MG/DL (70-104); MAGNESIUM 1.9 MG/DL (1.5-2.4); PHOSPHORUS 8.5 MG/DL (2.3-4.5); POTASSIUM 5.1 MMOL/L (3.5-5.1); SODIUM 137 MMOL/L (135-145); TOTAL CARBON DIOXIDE 21.9 MMOL/L (24-32); TOTAL PROTEIN 6.1 G/DL (6.4-8.2); VANCOMYCIN,RANDOM 11.2 ug/mL (20.0-30.0); eCRCL 17 ML/MIN; eGFR 14 ML/MIN
[2023-03-08] MEDS ORDERED: loperamide 2mg capsule PO PRN (10:29)
[2023-03-08] MEDS: linezolid 600mg tablet OGT SCH ×2 (12:06→23:35)
[2023-03-08] MEDS: morphine 4 MG/ML inj SYRINge IV PRN ×2 (13:59→19:37)
[2023-03-08] MEDS: heparin, porcine 5000 units/ml vial SQ SCH ×2 (16:13→23:35)
--- NOTE | 2023-03-08 16:22 | NUR ---
Problems reprioritized. Patient report given, questions answered & plan of care reviewed with Jamel AMADOR.
--- NOTE | 2023-03-08 16:52 | NUR ---
Patient transferred to room 3021 with all belongings. Judy RN at bedside to receive pt. Patients sister called to update.
[2023-03-08] MEDS: HYDROcodone/acetaminophen 10/325mg tab PO PRN ×2 (16:55→23:47)
--- NOTE | 2023-03-08 17:49 | NUR ---
HEMODIALYSIS TECHNICIAN [place] documentation: I have reviewed and agree with all interventions, assessments performed and documented by Jamel PATRICK. HEMODIALYSIS TECHNICIAN [place] Medication Administration: For this medication-pass time frame, all medication were reviewed, dispensed, administered and documented per hospital policy by Jamel PATRICK.
--- NOTE | 2023-03-08 18:30 | NUR ---
Patient in room PCU 3021. I have received report from Kamryn PATRICK and had the opportunity to ask questions and assume patient care.
--- NOTE | 2023-03-08 18:39 | NUR ---
Problems reprioritized. Patient report given, questions answered & plan of care reviewed with Judy AMADOR.
[2023-03-08] MEDS: morphine 2 MG/ML inj. syringe IV PRN (23:45)
[2023-03-09] VITALS (8 sets, daily range): BP systolic 101–128; BP diastolic 58–78; PULSE 85–99; RESP 21–33; TEMP 98–98.9; O2SAT 94–96
[2023-03-09] MEDS: morphine 4 MG/ML inj SYRINge IV PRN ×3 (06:00→14:43)
--- NOTE | 2023-03-09 06:30 | NUR ---
Problems reprioritized. Patient report given, questions answered & plan of care reviewed with ALEX AMADOR.
[2023-03-09 06:43] LABS: BASOPHILS # (AUTO) 0.1 X10'3 (0-0.2); BASOPHILS % (AUTO) 0.4 % (0-1); EOSINOPHILS # (AUTO) 0.2 X10'3 (0-0.9); EOSINOPHILS % (AUTO) 0.9 % (0-6); HEMATOCRIT 35.9 % (42.0-52.0); HEMOGLOBIN 11.6 g/dl (14.0-17.9); LYMPHOCYTES # (AUTO) 0.8 X10'3 (1.1-4.8); LYMPHOCYTES % (AUTO) 3.3 % (21-51); MEAN CORPUSCULAR HEMOGLOBIN 26.9 PG (27.0-31.0); MEAN CORPUSCULAR HGB CONC 32.4 g/dL (33.0-36.5); MONOCYTES # (AUTO) 2.6 X10'3 (0-0.9); MONOCYTES % (AUTO) 11.4 % (2-12); NEUTROPHILS # (AUTO) 19.2 X10'3 (1.8-7.7); PLATELET COUNT 271 X10'3 (140-440); RED BLOOD COUNT 4.33 X10'6 (4.70-6.10); RED CELL DISTRIBUTION WIDTH 17.5 % (11.5-14.5); WHITE BLOOD COUNT 22.8 X10'3 (4.5-11.0)
--- NOTE | 2023-03-09 07:00 | NUR ---
Patient in room PCU 3021. I have received report from EILEEN AMADOR and had the opportunity to ask questions and assume patient care.
[2023-03-09 07:08] LABS: ALANINE AMINOTRANSFERASE 87 U/L (12-78); ALBUMIN 2.5 G/DL (3.4-5.0); ALBUMIN/GLOBULIN RATIO 0.6 (1.1-1.5); ALKALINE PHOSPHATASE 133 IU/L (46-116); ANION GAP 15 (8-16); BILIRUBIN,TOTAL 2.1 MG/DL (0.1-1.0); BLOOD UREA NITROGEN 132 MG/DL (7-18); BUN/CREATININE RATIO 28.5 (10.0-20.0); CALCIUM 8.2 MG/DL (8.5-10.1); CHLORIDE 101 MMOL/L (99-107); CREATININE 4.63 MG/DL (0.60-1.10); GLUCOSE 93 MG/DL (70-104); MAGNESIUM 1.9 MG/DL (1.5-2.4); SODIUM 137 MMOL/L (135-145); TOTAL CARBON DIOXIDE 20.7 MMOL/L (24-32); TOTAL PROTEIN 6.6 G/DL (6.4-8.2); eCRCL 17 ML/MIN; eGFR 13 ML/MIN
[2023-03-09 07:56] LABS: ASPARTATE AMINO TRANSFERASE 42 U/L (10-37); PHOSPHORUS 8.3 MG/DL (2.3-4.5); POTASSIUM 5.5 MMOL/L (3.5-5.1)
[2023-03-09] MEDS: calcium acetate 667mg (PhosLO) capsule PO SCH ×3 (09:18→17:14)
[2023-03-09] MEDS: lansoprazole 15mg solutab OGT SCH (09:18)
[2023-03-09] MEDS: heparin, porcine 5000 units/ml vial SQ SCH ×2 (09:18→17:14)
[2023-03-09] MEDS: linezolid 600mg tablet OGT SCH (10:21)
--- NOTE | 2023-03-09 13:37 | NUR ---
F/u 03/09: Per physician note, no further need for dialysis at this time. Pt continues on a heart healthy diet with average PO intake 73%x 5 meals of solid food. Consider switching to renal diet given high K, Phos, BUN, and Creatinine. Pt seen at bedside states he had peaches for breakfast (noticed peaches at bedside) in addition per MD note pt states he ate watermelon. Pt met 86% of estimated kcal needs and 87% of estimated protein needs though suspect higher due to outside food. Provided pt with verbal/written low tyramine diet education with RD contact information. Encouraged pt to reach out for any nutrition questions or concerns. Will continue to monitor. Recommendations: 1. consider renal diet 2. Monitor PO trends for ONS needs 3. continue Phos binder per physician discretion 4. bowel care per rx 5. Daily scaled weights Addendum: 03/09/23 at [address] Amended: Links added.
--- NOTE | 2023-03-09 18:45 | NUR ---
Patient in room PCU 3021. I have received report from PERRY JOHNSON and had the opportunity to ask questions and assume patient care.
--- NOTE | 2023-03-09 18:47 | NUR ---
Patient in room PCU 3021. I have received report from PERRY JOHNSON and had the opportunity to ask questions and assume patient care.
--- NOTE | 2023-03-09 18:47 | NUR ---
Problems reprioritized. Patient report given, questions answered & plan of care reviewed with PABLO AMADOR.
[2023-03-09] MEDS: linezolid 600mg/300ml PREMIX 300 ML IV SCH (22:15)
[2023-03-10] MEDS: heparin, porcine 5000 units/ml vial SQ SCH ×2 (00:10→08:58)
[2023-03-10] MEDS: levoFLOXACIN-Levaquin 250mg/D5 50 ML IV SCH ×2 (00:58→08:56)
[2023-03-10 02:00] VITALS: BP 111/68; PULSE 91; RESP 22; TEMP 98.1; O2SAT 96
[2023-03-10] MEDS: morphine 4 MG/ML inj SYRINge IV PRN ×2 (02:12→09:03)
[2023-03-10 06:00] VITALS: BP 120/78; PULSE 95; RESP 24; TEMP 97.9; O2SAT 94
--- NOTE | 2023-03-10 06:46 | NUR ---
Problems reprioritized. Patient report given, questions answered & plan of care reviewed with PERRY TINAJERO.
[2023-03-10 07:30] LABS: BASOPHILS # (AUTO) 0.1 X10'3 (0-0.2); BASOPHILS % (AUTO) 0.5 % (0-1); EOSINOPHILS # (AUTO) 0.2 X10'3 (0-0.9); EOSINOPHILS % (AUTO) 1.2 % (0-6); HEMATOCRIT 32.2 % (42.0-52.0); HEMOGLOBIN 10.4 g/dl (14.0-17.9); LYMPHOCYTES % (AUTO) 5.1 % (21-51); MEAN CORPUSCULAR HEMOGLOBIN 26.8 PG (27.0-31.0); MEAN CORPUSCULAR HGB CONC 32.1 g/dL (33.0-36.5); MEAN CORPUSCULAR VOLUME 83.4 FL (78-98); MEAN PLATELET VOLUME 9.4 FL (7.4-10.4); MONOCYTES # (AUTO) 2.4 X10'3 (0-0.9); MONOCYTES % (AUTO) 12.8 % (2-12); NEUTROPHILS # (AUTO) 15.2 X10'3 (1.8-7.7); NEUTROPHILS % (AUTO) 80.4 % (42-75); PLATELET COUNT 270 X10'3 (140-440); RED BLOOD COUNT 3.86 X10'6 (4.70-6.10); RED CELL DISTRIBUTION WIDTH 17.4 % (11.5-14.5); WHITE BLOOD COUNT 18.9 X10'3 (4.5-11.0)
[2023-03-10 07:47] LABS: ALANINE AMINOTRANSFERASE 61 U/L (12-78); ALBUMIN 2.2 G/DL (3.4-5.0); ALBUMIN/GLOBULIN RATIO 0.6 (1.1-1.5); ALKALINE PHOSPHATASE 102 IU/L (46-116); ANION GAP 14 (8-16); ASPARTATE AMINO TRANSFERASE 25 U/L (10-37); BILIRUBIN,TOTAL 1.6 MG/DL (0.1-1.0); BLOOD UREA NITROGEN 121 MG/DL (7-18); BUN/CREATININE RATIO 29.2 (10.0-20.0); CALCIUM 7.5 MG/DL (8.5-10.1); CHLORIDE 104 MMOL/L (99-107); CREATININE 4.15 MG/DL (0.60-1.10); GLUCOSE 100 MG/DL (70-104); MAGNESIUM 1.7 MG/DL (1.5-2.4); PHOSPHORUS 6.7 MG/DL (2.3-4.5); POTASSIUM 4.9 MMOL/L (3.5-5.1); SODIUM 139 MMOL/L (135-145); TOTAL CARBON DIOXIDE 21.1 MMOL/L (24-32); TOTAL PROTEIN 5.7 G/DL (6.4-8.2); eCRCL 19 ML/MIN; eGFR 15 ML/MIN
[2023-03-10 08:00] VITALS: RESP 25
[2023-03-10] MEDS: linezolid 600mg/300ml PREMIX 300 ML IV SCH (08:00)
[2023-03-10] MEDS: calcium acetate 667mg (PhosLO) capsule PO SCH ×2 (08:57→13:13)
[2023-03-10] MEDS: HYDROcodone/acetaminophen 10/325mg tab PO PRN ×2 (08:58→15:18)
[2023-03-10] MEDS: lansoprazole 15mg solutab OGT SCH (09:03)
[2023-03-10 15:10] LABS: TOTAL CELLS COUNTED 100
[2023-03-10 15:11] LABS: PLATELET ESTIMATE NORMAL
[2023-03-10 15:12] LABS: ANISOCYTOSIS 1+; POIKILOCYTOSIS 1+
[2023-03-10 15:18] VITALS: BP 99/56; PULSE 86; RESP 24; TEMP 98.4; O2SAT 96
--- NOTE | 2023-03-10 15:40 | NUR ---
REPORT CALLED TO MARÍA AT [facility]. ALL QUESTIONS ANSWERED AND REPORT GIVEN PT IS SET TO LEAVE AT 1600
[2023-03-10 16:00] VITALS: BP 99/64; PULSE 86; RESP 22; TEMP 98.8; O2SAT 96
--- NOTE | 2023-03-10 17:05 | NUR ---
[facility], AGENCY TRANSPORTING MR [facility] TO [facility], HAS BEEN DELAYED. WILL BE ARRIVING SOON
--- NOTE | 2023-03-10 17:15 | NUR ---
[facility] HERE AND TRANSPORTED PATIENT TO [facility] - NO COMPLICATIONS - VSS
== END 2023-03-10 17:35 | DRG 720 ==
LOC: ER 22:05 → ED HOLD 02-25 09:57 → CICU 2S 02-25 12:12 → PCU 3S 03-08 16:48
PROVIDERS: ADMIT Internal Medicine Critical Care Medicine; ATTEND Internal Medicine Critical Care Medicine
PROC: 02HV33Z Insertion of Infusion Device into Superior Vena Cava, Percutaneous Approach (ICD-10-PCS; principal; 2023-02-25)
PROC: 5A1955Z Respiratory Ventilation, Greater than 96 Consecutive Hours (ICD-10-PCS; 2023-02-25)
PROC: B548ZZA Ultrasonography of Superior Vena Cava, Guidance (ICD-10-PCS; 2023-02-25)
PROC: 0BH17EZ Insertion of Endotracheal Airway into Trachea, Via Natural or Artificial Opening (ICD-10-PCS; 2023-02-25)
PROC: 03HY32Z Insertion of Monitoring Device into Upper Artery, Percutaneous Approach (ICD-10-PCS; 2023-02-25)
PROC: 05HY33Z Insertion of Infusion Device into Upper Vein, Percutaneous Approach (ICD-10-PCS; 2023-02-25)
PROC: 02HV33Z Insertion of Infusion Device into Superior Vena Cava, Percutaneous Approach (ICD-10-PCS; 2023-02-27)
DX: A41.53 Sepsis due to Serratia (principal); J96.00 Acute respiratory failure, unspecified whether with hypoxia or hypercapnia; K72.00 Acute and subacute hepatic failure without coma; N17.0 Acute kidney failure with tubular necrosis; I50.23 Acute on chronic systolic (congestive) heart failure; R65.21 Severe sepsis with septic shock; R57.0 Cardiogenic shock; I42.0 Dilated cardiomyopathy; I13.0 Hypertensive heart and chronic kidney disease with heart failure and stage 1 through stage 4 chronic kidney disease, or unspecified chronic kidney disease; I95.9 Hypotension, unspecified; Z68.43 Body mass index [BMI] 50.0-59.9, adult; E66.9 Obesity, unspecified; G47.33 Obstructive sleep apnea (adult) (pediatric); I07.1 Rheumatic tricuspid insufficiency; L03.116 Cellulitis of left lower limb; A41.02 Sepsis due to Methicillin resistant Staphylococcus aureus; L03.115 Cellulitis of right lower limb; G89.29 Other chronic pain; N18.9 Chronic kidney disease, unspecified; E87.5 Hyperkalemia; Z87.11 Personal history of peptic ulcer disease; Z72.0 Tobacco use
CPT/HCPCS: 36410; 36415; 36600; 71045; 73700; 74018; 76937; 80048; 80053; 80076; 80202; 80305; 82550; 82803; 82810; 82948; 83605; 83735; 83880; 84100; 84134; 84145; 84484; 84550; 85007; 85008; 85018; 85025; 85379; 85384; 85610; 85730; 87040; 87070; 87077; 87081; 87186; 87324; 87340; 87449; 93005; 93306; 93308; 93925; 94002; 94003; 94760; 96365; 96375; 97110; 97161; 97530; 97535; 99285; A4333; A4615; A4620; A6154; A6196; A6209; A6213; A6222; A6223; A6250; A6253; A6258; A6260; A6446; A6449; A9900; C1751; C1752; C1758; G0378; J0295; J0461; J0610; J1250; J1644; J1720; J1940; J1956; J2020; J2150; J2185; J2250; J2270; J2370; J2405; J2997; J3010; J3370; J3475; J3490; J7030; J7040; J7050; J7120; J7168; P9045; P9047; Q4081